=== PATIENT | female | born 1985 | race Caucasian/White ===

== ENCOUNTER → 2018-04-07 15:10 | Outpatient (CLI) | payer OTHER, SELFPAY ==
[2018-04-11 15:34] LABS: HPV APTIMA, High Risk Negative (Negative)
== END ==
PROVIDERS: Family Provider Family Medicine; PCP Family Medicine; Visit Provider Nurse Practitioner Women's Health
DX: Z12.4 Encounter for screening for malignant neoplasm of cervix (principal)
CPT/HCPCS: 88175; G0145

== ENCOUNTER → 2018-05-05 09:28 | Outpatient (CLI) | payer OTHER, SELFPAY | LOC: OPBI 09:28 | PROVIDERS: Family Provider Family Medicine; PCP Family Medicine; Visit Provider Nurse Practitioner Women's Health | DX: N60.02 Solitary cyst of left breast (principal) | CPT/HCPCS: 76641; 77062; 77063; 77066; G0279 ==

== ENCOUNTER → 2025-03-19 | Outpatient (CLI) | payer OTHER, SELFPAY ==
[2025-03-19 10:39] LABS: Hematocrit 40.9 % (37-47); Hemoglobin 13.4 g/dL (12.0-15.0); Immature Granulocytes Count 0.010 X10^3/uL (0.0-0.0); Mean Corp Hgb Conc 32.8 g/dL (32-36); Mean Corpuscular Volume 92.5 fL (81-99); Mean Platelet Vol. 11.3 fl (6.2-12.0); NRBC Flagged by Analyzer 0 % (0-5); Platelet Count 198 K/mm3 (150-450); RBC Distribution Width CV 12.6 % (11.6-14.6); RBC Distribution Width SD 43.0 fl (35.1-43.9); Red Blood Count 4.42 M/mm3 (4.2-5.4); White Blood Count 5.3 K/mm3 (4.4-11.0)
[2025-03-19 11:42] LABS: AST(SGOT) 20 U/L (<=31); Alanine Aminotransfer ALT/SGPT 14 U/L (<=34); Albumin, Serum 4.3 g/dL (3.5-5.0); Alkaline Phosphatase 65 U/L (35-104); Anion Gap 11 (5-15); BUN 11 mg/dL (4-19); BUN/Creat Ratio 13.1 RATIO (10-20); Calcium,Total 9.5 mg/dL (7.6-11.0); Carbon Dioxide 23.1 mmol/L (21.0-32.0); Chloride 105 mmol/L (98-108); Cholesterol 187 mg/dL (<=200); Ferritin 95 ng/mL (22-378); Globulin 2.7 g/dL (2.2-4.2); Glucose 86 mg/dL (70-99); Low Density Lipoprotein Calc. 123 mg/dL; Potassium 4.4 mmol/L (3.3-5.1); Triglycerides 70 mg/dL; Very Low Density Lipoprotein 14 mg/dL (5-40); cholesterol:hdl ratio screen 3.75
[2025-03-19 12:00] LABS: Iron 66 ug/dL (50-170)
[2025-03-19 12:37] LABS: CORTISOL AM 11.60 ug/dL (6.02-18.40)
== END | disposition home or self-care (01) ==
LOC: MTLAB 07:47
PROVIDERS: PCP Family Medicine; Referring Provider Family Medicine; Visit Provider Family Medicine
DX: Z00.00 Encounter for general adult medical examination without abnormal findings (principal); R63.8 Other symptoms and signs concerning food and fluid intake; R53.83 Other fatigue
CPT/HCPCS: 36415; 80053; 80061; 82533; 82728; 83540; 84443; 85025

== ENCOUNTER → 2025-06-14 | Outpatient (CLI) | payer OTHER, SELFPAY ==
--- NOTE | 2025-06-14 13:07 | BI_ITS ---
EXAM: DIAG MAMM W/CAD, BILAT 06/14/2025 CLINICAL HISTORY: F, Age 39 y/o , LUMP LEFT BREAST TECHNIQUE: Procedure Code: [id number] Modality: MG Procedure: DIAG MAMM W/CAD, BILAT. COMPARISON: Prior exam(s) dated 11/21/2023 and 05/05/2018. FINDINGS: TISSUE DENSITY: The breasts are extremely dense, which lowers the sensitivity of mammography. Bilateral Breast Mammographic Findings: There are no suspicious masses, suspicious cluster of microcalcifications, architectural distortion or secondary signs of malignancy identified in the right breast. Benign round microcalcifications are seen in the right breast. Several partially obscured isodense masses are seen in the left breast. There is a mass located in the superior medial far posterior aspect of the breast which has a lobulated configuration. This may represent 2 separate masses or 1 lobulated mass. This mass measures 3 cm. This mass does correlate to the palpable abnormality. Further workup with ultrasound will be performed for further evaluation. There is a 12 mm partially obscured isodense mass in the superior outer aspect of the left breast. Further workup with ultrasound will be performed. BI/DIAG MAMM W/CAD, BILAT IMPRESSION: Ultrasound of the left breast will be performed for further evaluation of the m asses seen and the palpable abnormality. OVERALL FINAL ASSESSMENT BI-RADS 0: INCOMPLETE - NEED ADDITIONAL IMAGING EVALUATION. RECOMMENDATION: Ultrasound Recommended Additional Recommendation none A letter with findings and recommendations will be mailed to the patient. Reading Location: [id number]
--- NOTE | 2025-06-14 13:07 | US_ITS ---
PROCEDURE: BREAST COMPLETE UNILATERAL 06/14/2025 REASON FOR EXAM: F, Age 39 y/o , LUMP Palpable abnormality left breast. Evaluate. Inconclusive mammogram shows 2 masses in the left breast. The breast tissue is also dense which could obscure smaller underlying masses. COMPARISON: Mammogram studies dated 06/14/2025, 11/21/2023, and 05/05/2018. A left breast ultrasound dated 05/05/2018 was also reviewed.. TECHNIQUE: Procedure Code: [id number] Modality: US Procedure: BREAST COMPLETE UNILATERAL. A complete left breast ultrasound was performed. All 4 quadrants were scanned as well as the retroareolar region and axillary region. FINDINGS: There is a solid, hypoechoic, lobulated, heterogeneous mass in the left breast at the 11 o'clock, 8 cm from nipple position measuring 2.9 by 2.3 x 2.5 cm. The mass does not produce any posterior shadowing. The mass is taller than it is wide. It does correlate to the palpable abnormality and mass seen on the mammogram. There is blood flow to the mass. The mass is highly worrisome for malignancy. Biopsy is warranted. There is a solid hypoechoic mass in the left breast at the 1 o'clock, 8 cm from nipple position measuring 1.2 x 1.1 x 0.9 cm. This mass appears to be within a duct. There is blood flow to the mass. The mass does not produce any posterior shadowing. The mass does correlate to a mass seen on the mammogram. The mass is worrisome for malignancy. Biopsy is warranted. No other additional masses are seen in the breast. There are 2 benign-appearing axillary lymph nodes. These have thin cortexes and fatty hilum. These lymph nodes are not worrisome for malignancy. US/Breast Limited Unilateral IMPRESSION: There are 2 malignant-appearing masses in the left breast at the 11 o'clock and 1 o'clock positions. Biopsy of both masses is warranted in order to completely exclude a malignancy. BI-RADS 5: HIGHLY SUGGESTIVE OF MALIGNANCY. RECOMMENDATION: Biopsy Recommended Reading Location: [id number]
--- OUTSIDE RECORDS SUMMARY | 2025-06-14 16:09 | XMS RPT_ITS | CCD ---
Author Organization [facility] Team Providers Care 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 Name Role Phone HarryChely arias Unavailable Unavailable Unavailable Ryan DO Chely Jada Unavailable [phone] Mesko DO, Victoria L Primary Care Provider Mesko DO, Victoria L Unavailable MESKO, VICTORIA L Referring Unavailable MESKO, VICTORIA L Primary Care Unavailable MESKO, VICTORIA L Primary Care Unavailable MESKO, VICTORIA L Primary Care Unavailable MESKO, VICTORIA L Referring Unavailable MESKO, VICTORIA L Primary Care Unavailable MESKO, VICTORIA L Referring Unavailable MESKO, VICTORIA L Primary Care Unavailable MESKO, VICTORIA L Referring Unavailable MESKO, VICTORIA L Primary Care Unavailable Mesko DO, Victoria L Unavailable [phone] MESKO, VICTORIA L Attending Unavailable MESKO, VICTORIA L Primary Care Unavailable MESKO, VICTORIA L Primary Care Unavailable MESKO, VICTORIA L Referring Unavailable MESKO, VICTORIA L Attending Unavailable MESKO, VICTORIA L Primary Care Unavailable MESKO, VICTORIA L Attending Unavailable MESKO, VICTORIA L Primary Care Unavailable MESKO, VICTORIA L Primary Care Unavailable KIMBERLEY VAZQUEZ Attending Unavailelana e MESKO, VICTORIA L Primary Care Unavailable Dr. Fortunato Berry DO Primary Care Provider [phone] Dr. Fortunato Berry DO Attending Provider [phone] Dr. Fortunato Berry DO Referring Provider Fortunato Berry Referring Unavailable Fortunato Berry Attending Unavailable Fortunato Berry Primary Care Unavailable Medications Current Medications Medication Drug Class(es) Dates Sig (Normalized) Sig (Original) amoxicillin 500 mg oral capsule (1 source) Penicillin-class Antibacterial Start: 09-17-2023 End: 09-22-2023 take 1 capsule by mouth every eight hours amoxicillin (Amoxil) 500 mg capsule Indications: Dental infection Take 1 capsule (500 mg) by mouth every 8 hours for 5 days. 15 capsule 0 09/17/2023 09/22/2023 Active Completed/Discontinued Medications Medication Drug Class(es) Dates Sig (Normalized) Sig (Original) amoxicillin 875 mg / clavulanate 125 mg oral tablet (1 source) Penicillin-class Antibacterial Start: 08-05-2018 End: 08-15-2018 Amoxicillin-Pot Clavulanate (Augmentin) 875-125 mg tablet Discontinued 1 {tbl} PO Q12H 20 10 0 August 05, 2018 1:00am August 14, 2018 1:00am August 15, 2018 1:09am Acute sinusitis, unspecified azithromycin 250 mg oral tablet (2 sources) Macrolide Antimicrobial Start: 07-26-2023 End: 08-07-2023 azithromycin (Zithromax) 250 mg tablet take 2 tablets by mouth on day 1 then 1 tablet by mouth every day after 6 tablet 0 07/26/2023 08/07/2023 Discontinued (Med List Cleanup) Start: 11-18-2019 take 2-5 tablets by mouth once daily Azithromycin (Zithromax Z-Harish) 250 mg tablet Active 0 PO .COMPLEX 6 0 November 18, 2019 12:00am take 500 mg today (day 1), then 250 mg for 4 days (days 2-5) PO metroNIDAZOLE 500 mg oral tablet (1 source) Nitroimidazole Antimicrobial Start: 03-28-2022 take 1 tablet by mouth twice daily metroNIDAZOLE 500 MG Oral Tablet TAKE 1 TABLET TWICE DAILY UNTIL FINISHED. Quantity: 14 Refills: 0 Ordered: 28-Mar-2022 Rachel Morse DO Start : 28-Mar-2022 Active No Reported Medications (2 sources) No Reported Medications Quantity: 0 Refills: 0 Ordered: 20-Mar-2022 DO Active sertraline 50 mg oral tablet (13 sources) Serotonin Reuptake Inhibitor Start: 05-26-2024 End: 09-05-2024 take 1 tablet by mouth once daily sertraline (Zoloft) 50 mg tablet Indications: Acute stress reaction Take 1 tablet (50 mg) by mouth once daily. 90 tablet 3 09/05/2024 09/05/2024 Discontinued (Reorder) Start: 10-30-2023 End: 04-27-2024 take 1 tablet by mouth once daily sertraline (Zoloft) 50 mg tablet Indications: Acute stress reaction Take 1 tablet (50 mg) by mouth once daily. 90 tablet 1 10/30/2023 04/27/2024 Active Start: 07-18-2023 End: 10-16-2023 take 1 tablet by mouth once daily sertraline (Zoloft) 50 mg tablet Indications: Acute stress reaction Take 1 tablet (50 mg) by mouth once daily. 90 tablet 0 07/18/2023 10/16/2023 Active Start: 05-16-2023 End: 07-15-2023 take 1 tablet by mouth once daily sertraline (Zoloft) 25 mg tablet Indications: Acute stress reaction Take 1 tablet (25 mg) by mouth once daily. 30 tablet 1 05/16/2023 07/15/2023 Active Problems Active Problems Problem Classification Problem Date Documented Date Episodic/Chronic Adjustment disorders (20 sources) Adjustment disorder with mixed anxiety and depressed mood; Translations: [Adjustment disorder with mixed anxiety and depressed mood] Onset: 12-07-2022 12-07-2022 Chronic Anxiety disorders (6 sources) Acute stress disorder; Translations: [Acute stress reaction] Onset: 09-05-2024 05-16-2023 Chronic Immunizations and screening for infectious disease (2 sources) Encounter for immunization; Translations: [Encounter for immunization] Onset: 07-10-2024 Episodic Menstrual disorders (16 sources) Menorrhagia; Translations: [Excessive or frequent menstruation] Onset: 12-07-2022 12-07-2022 Chronic Nonmalignant breast conditions (14 sources) Fibrocystic disease of breast; Translations: [Diffuse cystic mastopathy] Onset: 12-07-2022 12-07-2022 Chronic Other nutritional; endocrine; and metabolic disorders (2 sources) Overweight in adulthood with body mass index of 25 or more but less than 30; Translations: [Overweight] 05-16-2023 Episodic Other and delivery including normal (3 sources) Delivery normal; Translations: [Normal delivery] Episodic Comment on above: 08-04-2002-34 weeks- [id number]-7 lbs 7 oz; Other upper respiratory infections (1 source) Acute sinusitis; Translations: [Acute sinusitis, unspecified] 08-05-2018 Episodic Residual codes; unclassified (18 sources) BRCA1 gene mutation positive; Translations: [Genetic susceptibility to malignant neoplasm of breast] Onset: 12-07-2022 12-07-2022 Episodic Residual codes; unclassified (2 sources) Genetic susceptibility to malignant neoplasm of breast; Translations: [Genetic susceptibility to malignant neoplasm of breast] Onset: 12-07-2022 Episodic Residual codes; unclassified (2 sources) Genetic susceptibility to other malignant neoplasm; Translations: [Genetic susceptibility to other malignant neoplasm] Onset: 12-07-2022 Episodic Residual codes; unclassified (1 source) Family history of malignant neoplasm of breast in first degree relative; Translations: [Family history of malignant neoplasm of breast] 04-07-2018 Episodic Residual codes; unclassified (1 source) Breast cancer genetic marker of susceptibility positive; Translations: [Genetic susceptibility to malignant neoplasm of breast] 04-07-2018 Episodic Unclassified (1 source) ERRONEOUS ENCOUNTER--DISREGARD 08-12-2023 Unclassified (1 source) Patient encounter status 09-05-2024 Past or Other Problems Problem Classification Problem Date Documented Date Episodic/Chronic Disorders of teeth and jaw (3 sources) Infection of tooth; Translations: [Periapical abscess without sinus] Onset: 09-17-2023 09-17-2023 Episodic Inflammatory diseases of female pelvic organs (12 sources) Bacterial vaginosis; Translations: [Vaginitis and vulvovaginitis, unspecified] Onset: 12-07-2022 Resolved: 05-16-2023 05-16-2023 Episodic Mood disorders (11 sources) Mood disorders Onset: 05-16-2023 Resolved: 10-09-2023 05-16-2023 Nonspecific chest pain (4 sources) Other chest pain; Translations: [Other chest pain] Onset: 10-21-2023 Episodic Other circulatory disease (2 sources) Hemorrhage, not elsewhere classified; Translations: [Hemorrhage, not elsewhere classified] Onset: 10-21-2023 Episodic Other connective tissue disease (2 sources) Other muscle spasm; Translations: [Other muscle spasm] Onset: 10-21-2023 Episodic Other injuries and conditions due to external causes (4 sources) Unspecified injury of thorax, initial encounter; Translations: [Unspecified injury of thorax, initial encounter] Onset: 10-21-2023 Episodic Other lower respiratory disease (4 sources) Pleurodynia; Translations: [Pleurodynia] Onset: 10-21-2023 Episodic Other nutritional; endocrine; and metabolic disorders (2 sources) Overweight; Translations: [Overweight] Onset: 10-09-2023 Episodic Other nutritional; endocrine; and metabolic disorders (2 sources) Body mass index (BMI) 26.0-26.9, adult; Translations: [Body mass index (BMI) 26.0-26.9, adult] Onset: 10-09-2023 Episodic Other screening for suspected conditions (not mental disorders or infectious disease) (17 sources) Patient encounter status; Translations: [Screening for other and unspecified cardiovascular conditions] Onset: 10-09-2023 10-09-2023 Episodic Sprains and strains (2 sources) Strain of muscle, fascia and tendon at neck level, initial encounter; Translations: [Strain of muscle, fascia and tendon at neck level, initial encounter] Onset: 10-21-2023 Episodic Unclassified (3 sources) Finding of menstrual bleeding; Translations: [Menstruation] Comment on above: age 12; Unclassified (1 source) BRCA 1 positive 03-30-2022 Results Test Name Value Interpretation Reference Range Facility Absolute lymphocyte countOrd ered By: Fortunato Berry on 03-19-2025 Lymphocytes Auto (Unsp spec) [#/Vol] 1.62 10*3/uL 0.83-4.51 [facility] Absolute neutrophil countOrd ered By: Fortunato Berry on 03-19-2025 Neutrophils (Bld) [#/Vol] 3.2 10*3/uL 2.0-7.7 [facility] Anion gap in Serum or Plasma Ordered By: Fortunato Berry on 03-19-2025 Anion gap [Moles/Vol] 11 mmol/L 5-15 [facility] Automated lymphocyte count a s percentage of total leukocytesOrdered By: Fortunato Berry on 03-19-2025 Lymphocytes/100 WBC Auto (Unsp spec) 30.7 % 19-41 [facility] BUN/creatinine ratioOrdered By: Fortunato Berry on 03-19-2025 Urea nitrogen/Creatinine [Mass ratio] 13.1 mg/mg 10-20 [facility] Basophil percentageOrdered B y: Fortunato Berry on 03-19-2025 Basophils/100 WBC (Bld) 0.6 % 0-1 [facility] Bilirubin, totalOrdered By: Fortunato Berry on 03-19-2025 Bilirubin [Mass/Vol] 0.36 mg/dL 0.00-1.30 [facility] CBC W/Diff, Automatedon 03-09 Absolute Lymph 1.62 X10 3/uL Normal 0.83-4.51 [facility] Comment on above: Performed By: #### L 100.0100, L501.9520, L503.6550, L500.4100, L500.4050, L503.6150, L509.6001 #### [facility] [address] [place], [address] Absolute Neut 3.2 X10 3/uL Normal 2.0-7.7 [facility] Comment on above: Performed By: #### L 100.0100, L501.9520, L503.6550, L500.4100, L500.4050, L503.6150, L509.6001 #### [facility] [address] [place], [address] Basophils/100 WBC (Bld) 0.6 % Normal 0-1 [facility] Comment on above: Performed By: #### L 100.0100, L501.9520, L503.6550, L500.4100, L500.4050, L503.6150, L509.6001 #### [facility] [address] [place], [address] Eosinophils/100 WBC (Bld) 1.7 % Normal 0-5 [facility] Comment on above: Performed By: #### L 100.0100, L501.9520, L503.6550, L500.4100, L500.4050, L503.6150, L509.6001 #### [facility] [address] [place], [address] Erythrocyte distribution width (RBC) [Ratio] 12.6 % Normal 11.6-14.6 [facility] Comment on above: Performed By: #### L 100.0100, L501.9520, L503.6550, L500.4100, L500.4050, L503.6150, L509.6001 #### [facility] [address] [place], [address] Hematocrit (Bld) [Volume fraction] 40.9 % Normal 37-47 [facility] Comment on above: Performed By: #### L 100.0100, L501.9520, L503.6550, L500.4100, L500.4050, L503.6150, L509.6001 #### [facility] [address] [place], [address] Hemoglobin (Bld) [Mass/Vol] 13.4 g/dL Normal 12.0-15.0 [facility] Comment on above: Performed By: #### L 100.0100, L501.9520, L503.6550, L500.4100, L500.4050, L503.6150, L509.6001 #### [facility] [address] [place], [address] IG% 0.200 Normal 0.0-0.9 [facility] Comment on above: Result Comment: IG% - Immature Granulocytes (promyelocytes, myelocytes and metamyelocytes) > 1% indicates that a LEFT SHIFT is Present. Performed By: #### L 100.0100, L501.9520, L503.6550, L500.4100, L500.4050, L503.6150, L509.6001 #### [facility] [address] [place], [address] Lymphocytes/100 WBC (Bld) 30.7 % Normal 19-41 [facility] Comment on above: Performed By: #### L 100.0100, L501.9520, L503.6550, L500.4100, L500.4050, L503.6150, L509.6001 #### [facility] [address] [place], [address] MCH (RBC) [Entitic mass] 30.3 pg Normal 27.0-32.0 [facility] Comment on above: Performed By: #### L 100.0100, L501.9520, L503.6550, L500.4100, L500.4050, L503.6150, L509.6001 #### [facility] [address] [place], [address] MCHC (RBC) [Mass/Vol] 32.8 g/dL Normal 32-36 [facility] Comment on above: Performed By: #### L 100.0100, L501.9520, L503.6550, L500.4100, L500.4050, L503.6150, L509.6001 #### [facility] [address] [place], [address] MCV (RBC) [Entitic vol] 92.5 fL Normal 81-99 [facility] Comment on above: Performed By: #### L 100.0100, L501.9520, L503.6550, L500.4100, L500.4050, L503.6150, L509.6001 #### [facility] [address] [place], [address] Monocytes/100 WBC (Bld) 6.3 % Normal 0-10 [facility] Comment on above: Performed By: #### L 100.0100, L501.9520, L503.6550, L500.4100, L500.4050, L503.6150, L509.6001 #### [facility] [address] [place], [address] Neutrophils/100 WBC (Bld) 60.5 % Normal 47-70 [facility] Comment on above: Performed By: #### L 100.0100, L501.9520, L503.6550, L500.4100, L500.4050, L503.6150, L509.6001 #### [facility] [address] [place], [address] Nucleated RBC (Bld) [#/Vol] 0 10*3/uL Normal 0-5 [facility] Comment on above: Performed By: #### L 100.0100, L501.9520, L503.6550, L500.4100, L500.4050, L503.6150, L509.6001 #### [facility] [address] [place], [address] Platelet mean volume (Bld) [Entitic vol] 11.3 fL Normal 6.2-12.0 [facility] Comment on above: Performed By: #### L 100.0100, L501.9520, L503.6550, L500.4100, L500.4050, L503.6150, L509.6001 #### [facility] [address] [place], [address] Platelets (Bld) [#/Vol] 198 10*3/uL Normal 150-450 [facility] Comment on above: Performed By: #### L 100.0100, L501.9520, L503.6550, L500.4100, L500.4050, L503.6150, L509.6001 #### [facility] [address] [place], [address] RBC (Bld) [#/Vol] 4.42 10*6/uL Normal 4.2-5.4 [facility] Comment on above: Performed By: #### L 100.0100, L501.9520, L503.6550, L500.4100, L500.4050, L503.6150, L509.6001 #### [facility] [address] [place], [address] RDW SD 43.0 fl Normal 35.1-43.9 [facility] Comment on above: Performed By: #### L 100.0100, L501.9520, L503.6550, L500.4100, L500.4050, L503.6150, L509.6001 #### [facility] [address] [place], [address] WBC (Bld) [#/Vol] 5.3 10*3/uL Normal 4.4-11.0 [facility] Comment on above: Performed By: #### L 100.0100, L501.9520, L503.6550, L500.4100, L500.4050, L503.6150, L509.6001 #### [facility] [address] [facility] [place], [address] Calculated very low density lipoprotein (VLDL) cholesterol measurementOrdered By: Fortunato Berry on 03-19-2025 Calculated very low density lipoprotein (VLDL) cholesterol measurement 14 mg/dL 5-40 [facility] Carbon dioxide, total [Moles /volume] in Central venous bloodOrdered By: Fortunato Berry on 03-19-2025 CO2 [Moles/Vol] 23.1 mmol/L 21.0-32.0 [facility] Chloride assayOrdered By: Dylan Berry on 03-19-2025 Chloride [Moles/Vol] 105 mmol/L 98-108 [facility] Comprehensive Metabolic Prof ilon 03-19-2025 Albumin [Mass/Vol] 4.3 g/dL Normal 3.5-5.0 [facility] Comment on above: Performed By: #### L 100.0100, L501.9520, L503.6550, L500.4100, L500.4050, L503.6150, L509.6001 #### [facility] [address] [place], [address] Albumin/Globulin [Mass ratio] 1.6 {ratio} Normal 0.9-2.4 [facility] Comment on above: Performed By: #### L 100.0100, L501.9520, L503.6550, L500.4100, L500.4050, L503.6150, L509.6001 #### [facility] [address] [place], [address] ALK PHOS 65 U/L Normal 35-104 [facility] Comment on above: Performed By: #### L 100.0100, L501.9520, L503.6550, L500.4100, L500.4050, L503.6150, L509.6001 #### [facility] [address] [place], [address] ALT [Catalytic activity/Vol] 14 U/L Normal <=34 [facility] Comment on above: Performed By: #### L 100.0100, L501.9520, L503.6550, L500.4100, L500.4050, L503.6150, L509.6001 #### [facility] [address] [place], [address] AST [Catalytic activity/Vol] 20 U/L Normal <=31 [facility] Comment on above: Performed By: #### L 100.0100, L501.9520, L503.6550, L500.4100, L500.4050, L503.6150, L509.6001 #### [facility] [address] [place], [address] Bilirubin [Mass/Vol] 0.36 mg/dL Normal 0.00-1.30 [facility] Comment on above: Performed By: #### L 100.0100, L501.9520, L503.6550, L500.4100, L500.4050, L503.6150, L509.6001 #### [facility] [address] [place], [address] BUN/CRE 13.1 RATIO Normal 10-20 [facility] Comment on above: Performed By: #### L 100.0100, L501.9520, L503.6550, L500.4100, L500.4050, L503.6150, L509.6001 #### [facility] [address] [place], [address] Calcium [Mass/Vol] 9.5 mg/dL Normal 7.6-11.0 [facility] Comment on above: Performed By: #### L 100.0100, L501.9520, L503.6550, L500.4100, L500.4050, L503.6150, L509.6001 #### [facility] [address] [place], [address] Chloride [Moles/Vol] 105 mmol/L Normal 98-108 [facility] Comment on above: Performed By: #### L 100.0100, L501.9520, L503.6550, L500.4100, L500.4050, L503.6150, L509.6001 #### [facility] [address] [place], [address] CO2 [Moles/Vol] 23.1 mmol/L Normal 21.0-32.0 [facility] Comment on above: Performed By: #### L 100.0100, L501.9520, L503.6550, L500.4100, L500.4050, L503.6150, L509.6001 #### [facility] [address] [place], [address] Creatinine [Mass/Vol] 0.82 mg/dL Normal 0.70-1.20 [facility] Comment on above: Performed By: #### L 100.0100, L501.9520, L503.6550, L500.4100, L500.4050, L503.6150, L509.6001 #### [facility] [address] [place], [address] GAP 11 Normal 5-15 [facility] Comment on above: Performed By: #### L 100.0100, L501.9520, L503.6550, L500.4100, L500.4050, L503.6150, L509.6001 #### [facility] [address] [place], [address] GFR/1.73 sq M.predicted among non-blacks MDRD (S/P/Bld) [Vol rate/Area] 93 mL/min/{1.73_m2} Normal >60 [facility] Comment on above: Result Comment: mL/m in/1.73m2 CKD-EPI Creatinine Equation (2020) Performed By: #### L 100.0100, L501.9520, L503.6550, L500.4100, L500.4050, L503.6150, L509.6001 #### [facility] [address] [place], [address] Globulin (S) [Mass/Vol] 2.7 g/dL Normal 2.2-4.2 [facility] Comment on above: Performed By: #### L 100.0100, L501.9520, L503.6550, L500.4100, L500.4050, L503.6150, L509.6001 #### [facility] [address] [place], [address] Glucose [Mass/Vol] 86 mg/dL Normal 70-99 [facility] Comment on above: Performed By: #### L 100.0100, L501.9520, L503.6550, L500.4100, L500.4050, L503.6150, L509.6001 #### [facility] [address] [place], [address] Potassium [Moles/Vol] 4.4 mmol/L Normal 3.3-5.1 [facility] Comment on above: Performed By: #### L 100.0100, L501.9520, L503.6550, L500.4100, L500.4050, L503.6150, L509.6001 #### [facility] [address] [place], [address] Sodium [Moles/Vol] 140 mmol/L Normal 133-145 [facility] Comment on above: Performed By: #### L 100.0100, L501.9520, L503.6550, L500.4100, L500.4050, L503.6150, L509.6001 #### [facility] [address] [place], [address] T PROT 7.0 g/dL Normal 5.9-8.4 [facility] Comment on above: Performed By: #### L 100.0100, L501.9520, L503.6550, L500.4100, L500.4050, L503.6150, L509.6001 #### [facility] [address] [place], [address] Urea nitrogen [Mass/Vol] 11 mg/dL Normal 4-19 [facility] Comment on above: Performed By: #### L 100.0100, L501.9520, L503.6550, L500.4100, L500.4050, L503.6150, L509.6001 #### [facility] [address] [place], [address] Eosinophil percentageOrdered By: Fortunato Berry on 03-19-2025 Eosinophils/100 WBC (Bld) 1.7 % 0-5 [facility] Erythrocyte distribution wid th ratioOrdered By: Fortunato Berry on 03-19-2025 Erythrocyte distribution width (RBC) [Ratio] 12.6 % 11.6-14.6 [facility] Erythrocyte distribution wid th standard deviationOrdered By: Fortunato Berry on 03-19-2025 Erythrocyte distribution width (RBC) [Ratio] 43.0 fl 35.1-43.9 [facility] Ferritinon 03-19-2025 Ferritin [Mass/Vol] 95 ng/mL Normal 22-378 [facility] Comment on above: Performed By: #### L 100.0100, L501.9520, L503.6550, L500.4100, L500.4050, L503.6150, L509.6001 #### [facility] [address] [place], [address] Glomerular filtration rate ( GFR) estimation/1.73 sq m using serum, plasma, or whole bOrdered By: Fortunato Berry on 03-19-2025 GFR/1.73 sq M.predicted among non-blacks MDRD (S/P/Bld) [Vol rate/Area] 93 mL/min/{1.73_m2} >60 [facility] Comment on above: mL/min/1.73m2 CKD-EP I Creatinine Equation (2020) Hematocrit Auto (Bld) [Volum e fraction]Ordered By: Fortunato Berry on 03-19-2025 Hematocrit (Bld) [Volume fraction] 40.9 % 37-47 [facility] Hemoglobin measurementOrdere d By: Fortunato Berry on 03-19-2025 Hemoglobin (Bld) [Mass/Vol] 13.4 g/dL 12.0-15.0 [facility] Immature granulocytes/100 WB C Auto (Bld)Ordered By: Fortunato Berry on 03-19-2025 Immature granulocytes/100 WBC (Bld) 0.200 % 0.0-0.9 [facility] Comment on above: IG% - Immature Granu locytes (promyelocytes, myelocytes and metamyelocytes) > 1% indicates that a LEFT SHIFT is Present. Ironon 03-19-2025 Iron [Mass/Vol] 66 ug/dL Normal 50-170 [facility] Comment on above: Performed By: #### L 100.0100, L501.9520, L503.6550, L500.4100, L500.4050, L503.6150, L509.6001 #### [facility] [address] [place], [address] Iron measurement (mass/mass) Ordered By: Fortunato Berry on 03-19-2025 Iron (Unsp spec) [Mass/Mass] 66 ug/dL 50-170 [facility] L509.6001on 03-19-2025 CORTISOL 11.60 ug/dL Normal 6.02-18.40 [facility] Comment on above: Performed By: #### L 100.0100, L501.9520, L503.6550, L500.4100, L500.4050, L503.6150, L509.6001 #### [facility] [address] [place], [address] LDL calc ser/plasOrdered By: Fortunato Berry on 03-19-2025 Cholesterol in LDL [Mass/Vol] 123 mg/dL [facility] Comment on above: Nwkhgonjkt=629-712 m g/dL & Higher Vhuu=527 mg/dL or greater Laboratory - Chemistry and C hemistry - challengeOrdered By: Fortunato Berry on 03-19-2025 AST [Catalytic activity/Vol] 20 U/L <32 [facility] Lipid Profileon 03-19-2025 CHOL:HDL 3.75 Normal [facility] Comment on above: Performed By: #### L 100.0100, L501.9520, L503.6550, L500.4100, L500.4050, L503.6150, L509.6001 #### [facility] [address] [place], [place], [id number] [phone] Cholesterol [Mass/Vol] 187 mg/dL Normal <=200 [facility] Comment on above: Result Comment: Chol esterol level, Desirable <200 mg/dL Borderline high cholesterol 200-239 mg/dL High cholesterol >=240 mg/dL Recommendations of the NCEP Adult Treatment Panel for the following risk-cutoff thresholds for the [place] population. Performed By: #### L 100.0100, L501.9520, L503.6550, L500.4100, L500.4050, L503.6150, L509.6001 #### [facility] [address] [place], [address] Cholesterol in HDL [Mass/Vol] 50 mg/dL Normal [facility] Comment on above: Result Comment: Shilpa onal Cholesterol Education Program (NCEP) guidelines: <40 mg/dL: Low HDL-cholesterol (major risk factor for CHD) >= 60 mg/dL: High HDL-cholesterol (negative risk factor for CHD) HDL-cholesterol is affected by a number of factors, e.g. smoking, exercise, hormones, sex and age. Performed By: #### L 100.0100, L501.9520, L503.6550, L500.4100, L500.4050, L503.6150, L509.6001 #### [facility] [address] [place], [address] Cholesterol in LDL [Mass/Vol] 123 mg/dL Normal [facility] Comment on above: Result Comment: Bord fjopjr=854-235 mg/dL Higher Tqnv=417 mg/dL or greater Performed By: #### L 100.0100, L501.9520, L503.6550, L500.4100, L500.4050, L503.6150, L509.6001 #### [facility] [address] [place], [address] Cholesterol in VLDL [Mass/Vol] 14 mg/dL Normal 5-40 [facility] Comment on above: Performed By: #### L 100.0100, L501.9520, L503.6550, L500.4100, L500.4050, L503.6150, L509.6001 #### [facility] [address] [place], [address] Triglyceride [Mass/Vol] 70 mg/dL Normal [facility] Comment on above: Result Comment: The drugs N-Acetylcysteine and Metamizole may falsely depress this assay. Normal range: <150 mg/dL Borderline High: 150-199 mg/dL High: 200-499 mg/dL Very High: >500 mg/dL Performed By: #### L 100.0100, L501.9520, L503.6550, L500.4100, L500.4050, L503.6150, L509.6001 #### [facility] [address] [place], [address] MCV (mean corpuscular volume ) determinationOrdered By: Fortunato Berry on 03-19-2025 MCV (RBC) [Entitic vol] 92.5 fL 81-99 [facility] Mean corpuscular hemoglobin (MCH) determinationOrdered By: Fortunato Berry on 03-19-2025 MCH (RBC) [Entitic mass] 30.3 pg 27.0-32.0 [facility] Mean corpuscular hemoglobin concentration (MCHC) determinationOrdered By: Fortunato Berry on 03-19-2025 MCHC (RBC) [Mass/Vol] 32.8 g/dL 32-36 [facility] Mean platelet volume determi nationOrdered By: Fortunato Berry on 03-19-2025 Platelet mean volume (Bld) [Entitic vol] 11.3 fL 6.2-12.0 [facility] Monocyte percentageOrdered B y: Fortunato Berry on 03-19-2025 Monocytes/100 WBC (Bld) 6.3 % 0-10 [facility] Neutrophil percentageOrdered By: Fortunato Berry on 03-19-2025 Neutrophils/100 WBC (Bld) 60.5 % 47-70 [facility] Nucleated red blood cell per centageOrdered By: Fortunato Berry on 03-19-2025 Nucleated RBC/100 WBC (Bld) [Ratio] 0 % 0-5 [facility] Platelet countOrdered By: Dylan Berry on 03-19-2025 Platelets (Bld) [#/Vol] 198 10*3/uL 150-450 [facility] Potassium measurement (mass/ volume)Ordered By: Fortunato Berry on 03-19-2025 Potassium (Unsp spec) [Mass/Vol] 4.4 mmol/L 3.3-5.1 [facility] RBC Auto (Bld) [#/Vol]Ordere d By: Fortunato Berry on 03-19-2025 RBC (Bld) [#/Vol] 4.42 10*6/uL 4.2-5.4 [facility] Screening total cholesterol/ high density lipoprotein (HDL) cholesterol ratioOrdered By: Fortunato Berry on 03-19-2025 Cholesterol.total/Choles terol in HDL [Mass ratio] 3.75 {ratio} [facility] Serum creatinine measurement (mass/volume)Ordered By: Fortunato Berry on 03-19-2025 Creatinine [Mass/Vol] 0.82 mg/dL 0.70-1.20 [facility] Serum globulin measurementOr dered By: Fortunato Berry on 03-19-2025 Globulin (S) [Mass/Vol] 2.7 g/dL 2.2-4.2 [facility] Serum glucose measurement (m ass/volume)Ordered By: Fortunato Berry on 03-19-2025 Glucose [Mass/Vol] 86 mg/dL 70-99 [facility] Serum or plasma alanine dickson otransferase (ALT) measurementOrdered By: Fortunato Berry on 03-19-2025 ALT [Catalytic activity/Vol] 14 U/L <35 [facility] Serum or plasma albumin eyal urement (mass/volume)Ordered By: Fortunato Berry on 03-19-2025 Albumin [Mass/Vol] 4.3 g/dL 3.5-5.0 [facility] Serum or plasma albumin/glob ulin mass ratioOrdered By: Fortunato Berry on 03-19-2025 Albumin/Globulin [Mass ratio] 1.6 {ratio} 0.9-2.4 [facility] Serum or plasma alkaline zaid sphatase measurementOrdered By: Fortunato Berry on 03-19-2025 ALP [Catalytic activity/Vol] 65 U/L 35-104 [facility] Serum or plasma calcium eyal urement (mass/volume)Ordered By: Fortunato Berry on 03-19-2025 Calcium [Mass/Vol] 9.5 mg/dL 7.6-11.0 [facility] Serum or plasma cholesterol in HDL measurement (mass/volume)Ordered By: Fortunato Berry on 03-19-2025 Cholesterol in HDL [Mass/Vol] 50 mg/dL >40 [facility] Comment on above: National Cholesterol Education Program (NCEP) guidelines:<40 mg/dL: Low HDL-cholesterol (major risk factor for CHD)>= 60 mg/dL: High HDL-cholesterol (negative risk factor for CHD)HDL-cholesterol is affected by a number of factors, e.g. smoking, exercise, hormones, sex and age. Serum or plasma cholesterol measurement (mass/volume)Ordered By: Fortunato Berry on 03-19-2025 Cholesterol [Mass/Vol] 187 mg/dL <201 [facility] Comment on above: Cholesterol level, D esirable <200 mg/dLBorderline high cholesterol 200-239 mg/dLHigh cholesterol >=240 mg/dLRecommendations of the NCEP Adult Treatment Panel for the following risk-cutoff thresholds for the [place] population. Serum or plasma cortisol sada surement (mass/volume)Ordered By: Fortunato Berry on 03-19-2025 Cortisol [Mass/Vol] 11.60 ug/dL 6.02-18.40 [facility] Serum or plasma ferritin sada surement (mass/volume)Ordered By: Fortunato Berry on 03-19-2025 Ferritin [Mass/Vol] 95 ng/mL 22-378 [facility] Serum or plasma urea nitroge n measurement (mass/volume)Ordered By: Fortunato Berry on 03-19-2025 Urea nitrogen [Mass/Vol] 11 mg/dL 4-19 [facility] Sodium levelOrdered By: Fortunato Berry on 03-19-2025 Sodium [Moles/Vol] 140 mmol/L 133-145 [facility] TSH DL <= 0.005 mIU/L QnOrde red By: Fortunato Berry on 03-19-2025 TSH Qn 1.290 uIU/mL 0.300-4.200 [facility] Thyroid Stim Hormone (TSH)on 03-19-2025 TSH 1.290 uIU/mL Normal 0.300-4.200 [facility] Comment on above: Performed By: #### L 100.0100, L501.9520, L503.6550, L500.4100, L500.4050, L503.6150, L509.6001 #### [facility] [address] [place], [address] Total proteinOrdered By: Rosa Berry on 03-19-2025 Protein [Mass/Vol] 7.0 g/dL 5.9-8.4 [facility] Triglycerides measurementOrd ered By: Fortunato Berry on 03-19-2025 Triglyceride [Mass/Vol] 70 mg/dL <199 [facility] Comment on above: The drugs N-Acetylcy steine and Metamizole may falsely depress this assay. Normal range: <150 mg/dLBorderline High: 150-199 mg/dLHigh: 200-499 mg/dLVery High: >500 mg/dL White blood cell (WBC) count Ordered By: Fortunato Berry on 03-19-2025 WBC (Bld) [#/Vol] 5.3 10*3/uL 4.4-11.0 [facility] BI TRANSFER OF OUTSIDE FILMS on 11-22-2023 BI TRANSFER OF OUTSIDE FILMS Outside images for comparison or treatment purposes, not interpreted by Radiologists. [facility] BI TRANSFER OF OUTSIDE FILMS Outside images for comparison or treatment purposes, not interpreted by Radiologists. [facility] Study Interpretation of outs jason studyon 11-22-2023 Outside images for comparison or treatment purposes, not interpreted by Radiologists. IMAGING Outside images for comparison or treatment purposes, not interpreted by Radiologists. [facility]AG[facility] BI MAMMO BILATERAL SCREENING TOMOSYNTHESISon 11-21-2023 BI MAMMO BILATERAL SCREENING TOMOSYNTHESIS Interpreted By: Suleman Moody, STUDY: BI MAMMO BILATERAL SCREENING TOMOSYNTHESIS; 11/21/2023 9:52 am ACCESSION NUMBER(S): [id number] ORDERING CLINICIAN: VICTORIA FARMER INDICATION: Screening. COMPARISON: Digital mammograms dated 05/05/2018 FINDINGS: CC and MLO 2D digital mammograms and digital breast tomosynthesis images were obtained of the bilateral breasts. 3-D volume images were reconstructed in 4 views at an independent workstation as 1 mm slices through the breasts in both the CC and MLO projections. Density: The breast tissue is heterogeneously dense, which may obscure small masses. No discrete mass or focal asymmetry is identified. No suspicious microcalcifications or foci of architectural distortion are seen. There has been no significant change. This study was interpreted with CAD. IMPRESSION: No mammographic evidence of malignancy. BI-RADS CATEGORY: BI-RADS Category: 1 Negative. Recommendation: Routine Screening Mammogram in 1 Year. Recommended Date: 1 Year. Laterality: Bilateral. MACRO: None Signed by: Suleman Moody 11/27/2023 9:15 AM Dictation workstation: [id number] Normal [facility] CBC panel Auto (Bld)on 11-06 Erythrocyte distribution width (RBC) [Ratio] 12.9 % Normal 11.5-14.5 [facility] Comment on above: Performed By: #### 5 8410-2 #### KAREY Aquino ([id number]) [facility] ([facility]) [address] [place] [address] Hematocrit (Bld) [Volume fraction] 41.4 % Normal 36.0-46.0 [facility] Comment on above: Performed By: #### 5 8410-2 #### KAREY Aquino ([id number]) [facility] ([facility]) [address] [place] [address] 35731 Hemoglobin (Bld) [Mass/Vol] 13.6 g/dL Normal 12.0-16.0 [facility] Comment on above: Performed By: #### 5 8410-2 #### KAREY KIMTZLÓPEZ L ([id number]) [facility] ([facility]) [id number] [place] [address] 29284 MCH (RBC) [Entitic mass] 30.6 pg Normal 26.0-34.0 [facility] Comment on above: Performed By: #### 5 8410-2 #### KAREY BUCIO L ([id number]) [facility] ([facility]) [id number] [place] [address] 29540 MCHC (RBC) [Mass/Vol] 32.9 g/dL Normal 32.0-36.0 [facility] Comment on above: Performed By: #### 5 8410-2 #### KAREY Aquino ([id number]) [facility] ([facility]) [id number] [place] [address] 97233 MCV (RBC) [Entitic vol] 93 fL Normal 80-100 [facility] Comment on above: Performed By: #### 5 8410-2 #### KAREY Aquino ([id number]) [facility] ([facility]) [address] [place] [address] 76930 Nucleated RBC/100 WBC (Bld) [Ratio] 0.0 /100 WBCs Normal 0.0-0.0 [facility] Comment on above: Performed By: #### 5 8410-2 #### KAREY Aquino ([id number]) [facility] ([facility]) [address] [place] [address]502 Platelets (Bld) [#/Vol] 208 x10*3/uL Normal 150-450 [facility] Comment on above: Performed By: #### 5 8410-2 #### KAREY Aquino ([id number]) [facility] ([facility]) [address] [place] [address] 64082 RBC (Bld) [#/Vol] 4.45 x10*6/uL Normal 4.00-5.20 [facility] Comment on above: Performed By: #### 5 8410-2 #### KAREY Aquino ([id number]) [facility] ([facility]) [address] [place] [address] 98786 WBC (Bld) [#/Vol] 5.5 x10*3/uL Normal 4.4-11.3 [facility] Comment on above: Performed By: #### 5 8410-2 #### KAREY Aquino ([id number]) [facility] ([facility]) [address] [place] [address] 19271 Comprehensive metabolic 2000 panelon 11-06-2023 Albumin BCP dye [Mass/Vol] 4.2 g/dL Normal 3.4-5.0 [facility] Comment on above: Performed By: #### 2 4323-8 #### KAREY Aquino ([id number]) [facility] ([facility]) [id number] [place] [address] 09057 ALP [Catalytic activity/Vol] 66 U/L Normal 33-110 [facility] Comment on above: Performed By: #### 2 4323-8 #### KAREY Aquino ([id number]) [facility] ([facility]) [id number] [place] [address] 71602 ALT With P-5'-P [Catalytic activity/Vol] 9 U/L Normal 7-45 [facility] Comment on above: Result Comment: Giana ents treated with Sulfasalazine may generate falsely decreased results for ALT. Performed By: #### 2 4323-8 #### KAREY Aquino ([id number]) [facility] ([facility]) [address] [place] [address] 97449 Anion gap [Moles/Vol] 14 mmol/L Normal 10-20 [facility] Comment on above: Performed By: #### 2 4323-8 #### KAREY Aquino ([id number]) [facility] ([facility]) [id number] [place] [address] 57508 AST With P-5'-P [Catalytic activity/Vol] 14 U/L Normal 9-39 [facility] Comment on above: Performed By: #### 2 4323-8 #### KAREY Aquino ([id number]) [facility] ([facility]) [id number] [place] [address] 79828 Bilirubin [Mass/Vol] 0.5 mg/dL Normal 0.0-1.2 [facility] Comment on above: Performed By: #### 2 4323-8 #### KAREY Aquino ([id number]) [facility] ([facility]) [id number] [place] [address] 54915 Calcium [Mass/Vol] 9.3 mg/dL Normal 8.6-10.6 [facility] Comment on above: Performed By: #### 2 4323-8 #### KAREY Aquino ([id number]) [facility] ([facility]) [address] [place] [address] Chloride [Moles/Vol] 103 mmol/L Normal 98-107 [facility] Comment on above: Performed By: #### 2 4323-8 #### KAREY BUCIO L ([id number]) [facility] ([facility]) [address] [place] [address] CO2 [Moles/Vol] 27 mmol/L Normal 21-32 [facility] Comment on above: Performed By: #### 2 4323-8 #### KAREY Aquino ([id number]) [facility] ([facility]) [address] [place] [address] Creatinine [Mass/Vol] 0.68 mg/dL Normal 0.50-1.05 [facility] Comment on above: Performed By: #### 2 4323-8 #### KAREY Aquino ([id number]) [facility] ([facility]) [address] [place] [address] GFR/1.73 sq M.predicted MDRD (S/P/Bld) [Vol rate/Area] mL/min/{1.73_m2} Normal >60 [facility] Comment on above: Result Comment: Calc ulations of estimated GFR are performed using the 2020 CKD-EPI Study Refit equation without the race variable for the IDMS-Traceable creatinine methods. https://jasn.asnjournals.org/content/early//ASN.217 8365531 Performed By: #### 2 4323-8 #### KAREY Aquino ([id number]) [facility] ([facility]) [address] [place] [address] Glucose [Mass/Vol] 79 mg/dL Normal 74-99 [facility] Comment on above: Performed By: #### 2 4323-8 #### KAREY Aquino ([id number]) [facility] ([facility]) [address] [place] [address] Potassium [Moles/Vol] 4.3 mmol/L Normal 3.5-5.3 [facility] Comment on above: Performed By: #### 2 4323-8 #### KAREY CRUZER L ([id number]) [facility] ([facility]) [address] [place] [address] Protein [Mass/Vol] 6.5 g/dL Normal 6.4-8.2 [facility] Comment on above: Performed By: #### 2 4323-8 #### KAREY SCHMOTZER L ([id number]) [facility] ([facility]) [id number] [place] [address] 83007 Sodium [Moles/Vol] 140 mmol/L Normal 136-145 [facility] Comment on above: Performed By: #### 2 4323-8 #### KAREY SCHMOTZER L ([id number]) [facility] ([facility]) [address] [place] [address] 94677 Urea nitrogen [Mass/Vol] 10 mg/dL Normal 6-23 [facility] Comment on above: Performed By: #### 2 4323-8 #### KAREY RIVERAMOTZER L ([id number]) [facility] ([facility]) [id number] [place] [address] 82266 Lipid 1996 panelon 4 Cholesterol [Mass/Vol] 188 mg/dL Normal 0-199 [facility] Comment on above: Result Comment: Age Desirable Borderline High High 0-19 Y 0 - 169 170 - 199 >/= 200 20-24 Y 0 - 189 190 - 224 >/= 225 >24 Y 0 - 199 200 - 239 >/= 240 All ranges are based on fasting samples. Specific therapeutic targets will vary based on patient-specific cardiac risk. Pediatric guidelines reference:Pediatrics 2011, 128(S5).Adult guidelines reference: NCEP ATPIII Guidelines,TALITA 2001, 258:2486-97 Venipuncture immediately after or during the administration of Metamizole may lead to falsely low results. Testing should be performed immediately prior to Metamizole dosing. Performed By: #### 2 4331-1 #### KAREY Aquino ([id number]) [facility] ([facility]) [address] [place] [address] Cholesterol in HDL [Mass/Vol] 62.4 mg/dL Normal [facility] Comment on above: Result Comment: Age Very Low Low Normal High 0-19 Y < 35 < 40 40-45 ---- 20-24 Y ---- < 40 >45 ---- >24 Y ---- < 40 40-60 >60 Performed By: #### 2 4331-1 #### KAREY Aquino ([id number]) [facility] ([facility]) [id number] [place] [address] 47621 Cholesterol in LDL [Mass/Vol] 114 mg/dL High <=99 [facility] Comment on above: Result Comment: Near Borderline AGE Desirable Optimal High High Very High 0-19 Y 0 - 109 --- 110-129 >/= 130 ---- 20-24 Y 0 - 119 --- 120-159 >/= 160 ---- >24 Y 0 - 99 100-129 130-159 160-189 >/=190 Performed By: #### 2 4331-1 #### KAREY Aquino ([id number]) [facility] ([facility]) [id number] [place] [address] 23961 Cholesterol in VLDL [Mass/Vol] 12 mg/dL Normal 0-40 [facility] Comment on above: Performed By: #### 2 4331-1 #### KAREY Aquino ([id number]) [facility] ([facility]) [address] [place] [address] CHOLESTEROL/HDL RATIO 3.0 Normal [facility] Comment on above: Result Comment: Ref Values Desirable < 3.4 High Risk > 5.0 Performed By: #### 2 4331-1 #### KAREY Aquino ([id number]) [facility] ([facility]) [id number] [place] [address] 40202 NON HDL CHOLESTEROL 126 mg/dL Normal 0-149 [facility] Comment on above: Result Comment: Age Desirable Borderline High High Very High 0-19 Y 0 - 119 120 - 144 >/= 145 >/= 160 20-24 Y 0 - 149 150 - 189 >/= 190 ---- >24 Y 30 mg/dL above LDL Cholesterol goal Performed By: #### 2 4331-1 #### KAREY Aquino ([id number]) [facility] ([facility]) [address] [place], [place] [id number] Triglyceride [Mass/Vol] 60 mg/dL Normal 0-149 [facility] Comment on above: Result Comment: Age Desirable Borderline High High Very High 0 D-90 D 19 - 174 ---- ---- ---- 91 D- 9 Y 0 - 74 75 - 99 >/= 100 ---- 10-19 Y 0 - 89 90 - 129 >/= 130 ---- 20-24 Y 0 - 114 115 - 149 >/= 150 ---- >24 Y 0 - 149 150 - 199 200- 499 >/= 500 Venipuncture immediately after or during the administration of Metamizole may lead to falsely low results. Testing should be performed immediately prior to Metamizole dosing. Performed By: #### 2 4331-1 #### KAREY Aquino ([id number]) [facility] ([facility]) [address] [place], [place] [id number] TSH WITH REFLEX TO FREE T4 I F ABNORMALon 11-06-2023 TSH Qn 1.68 m[IU]/L Normal 0.44-3.98 [facility] Comment on above: Order Comment: TSH t esting is performed using different testing methodology at [facility] than at other [facility]. Direct result comparisons should only be made within the same method. Performed By: #### T HYDS #### KAREY Aquino ([id number]) [facility] ([facility]) [address] [place] [address] 78853 XR RIBS 3 VIEWS BILATERAL WI TH CHEST PA OR APon 10-21-2023 XR RIBS 3 VIEWS BILATERAL WITH CHEST PA OR AP STUDY: Bilateral Rib and Chest Radiographs; 10/21/2023 12:41 PM INDICATION: Chest pain and trauma. COMPARISON: None available. ACCESSION NUMBER(S): [id number] ORDERING CLINICIAN: VICTORIA FARMER TECHNIQUE: Frontal chest and three view(s) of the right ribs and three view(s) of the left ribs. FINDINGS: CARDIOMEDIASTINAL SILHOUETTE: Cardiomediastinal silhouette is normal in size and configuration. LUNGS: Lungs are clear. ABDOMEN: No remarkable upper abdominal findings. RIGHT RIBS: There is no acute rib fracture. LEFT RIBS: There is no acute rib fracture. OTHER VISUALIZED BONES: No acute osseous changes. IMPRESSION: No acute osseous findings. Signed by Francisco See II, MD Normal [facility] TOBACCO SCREEN MEDICAL PL AN ONLYon 05-31-2023 TOBACCO SCREEN, URINE Negative Normal [facility] Comment on above: Result Comment: Coti nine, a metabolite of nicotine, is measured to screen for nicotine exposure. The cut-off is set at 300ng/mL to detect active exposure (smoking). This test was developed and its performance characteristics were determined by the [facility]. Performed By: #### T OBSC #### [facility] [address] [place] [address] AN ONLYon 05-30-2023 Lab Specimen Source Urine Normal [facility] Comment on above: Performed By: #### T OBSC #### [facility] [address] [place] [address] Cancer Antigen, 125on 2021 Cancer Ag 125 Qn 8.9 [arb'U]/mL 0.0 - 30.2 [employer] Work Phone: Comment on above: CA 125 testing is pe rformed by chemiluminescent immunoassay using the [employer]. Values obtained with different analytic methods cannot be used interchangeably.. Serum CA 125 measurement is intended for use as an aid in monitoring patients previously treated for ovarian cancer. This assay is not intended for screening or diagnosis of cancer in the general population. The results must not be used as the sole means for clinical diagnosis or patient management decisions. Cancer Antigen, GI Ca 19-9on 03-20-2022 Cancer Ag 19-9 Qn 9.81 [arb'U]/mL <35.[address] [facility] [employer] Work Phone: Comment on above: CA 19-9 testing is p erformed by chemiluminescent immunoassay using the [employer]. Values obtained with different analytic methods cannot be used interchangeably.. Serum CA 19-9 measurement is indicated for the serial measurement of CA 19-9 to aid in the management of patients diagnosed with cancers of the exocrine pancreas. This assay is not intended for screening or diagnosis of cancer in the general population. The results must not be used as the sole means for clinical diagnosis or patient management decisions.. Patients known to be genotypically negative for the Dieter blood group antigens will be unable to produce CA 19-9 antigen, even in malignant tissue. Phenotyping for the presence of the Dieter antigen may be insufficient to detect true Dieter antigen negative individuals.. The results must not be used as the sole means for clinical diagnosis or patient management decisions. [facility] Last menstrual period start date 07Mar2022 April [place] [address] [employer] Work Phone: Laboratory - Chemistry and C hemistry - challengeon 03-20-2022 Albumin BCP dye [Mass/Vol] 4.4 g/dL 3.4 - 5.0 [place] [address] [employer] Work Phone: ALP [Catalytic activity/Vol] 67 U/L 33 - 110 [place] [address] [employer] Work Phone: ALT With P-5'-P [Catalytic activity/Vol] 19 U/L 7 - 45 [place] [address] [employer] Work Phone: Comment on above: Patients treated wit h Sulfasalazine may generate falsely decreased results for ALT. Anion gap [Moles/Vol] 10 mmol/L 10 - 20 [facility] [employer] Work Phone: AST With P-5'-P [Catalytic activity/Vol] 22 U/L 9 - 39 [place] [address] [employer] Work Phone: Bilirubin [Mass/Vol] 0.4 mg/dL 0.0 - 1.2 [facility] [employer] Work Phone: Calcium [Mass/Vol] 9.3 mg/dL 8.6 - 10.3 [facility] Work Phone: Chloride [Moles/Vol] 104 mmol/L 98 - 107 [facility] Work Phone: [phone] CO2 [Moles/Vol] 30 mmol/L 21 - 32 [facility] Work Phone: Creatinine [Mass/Vol] 0.80 mg/dL See Below [facility] Work Phone: Comment on above: Reference Range: 0.5 0 - 1.05 Glucose [Mass/Vol] 93 mg/dL 74 - 99 [facility] Work Phone: Potassium [Moles/Vol] 4.1 mmol/L 3.5 - 5.3 [facility] Work Phone: Protein [Mass/Vol] 6.9 g/dL 6.4 - 8.2 [facility] Work Phone: Sodium [Moles/Vol] 140 mmol/L 136 - 145 [facility] Phone: Urea nitrogen [Mass/Vol] 8 mg/dL 6 - 23 [facility] Work Phone: Laboratory - Cytologyon 03-09 Cytology report Cyto stain.thin prep Doc (Cvx/Vag) [facility] Work Phone: Lipid Panelon 03-20-2022 Cholesterol [Mass/Vol] 174 mg/dL 0 - [address] [facility] Work Phone: Comment on above: . AGE DESIRABLE BORD CAROL HIGH HIGH 0-19 Y 0 - 169 170 - 199 >/= 200 20-24 Y 0 - 189 190 - 224 >/= 225 >24 Y 0 - 199 200 - 239 >/= 240 All ranges are based on fasting samples. Specific therapeutic targets will vary based on patient-specific cardiac risk.. Pediatric guidelines reference:Pediatrics 2011, 128(S5). Adult guidelines reference: NCEP ATPIII Guidelines, TALITA 2001, 258:2486-97. Venipuncture immediately after or during the administration of Metamizole may lead to falsely low results. Testing should be performed immediately prior to Metamizole dosing. Cholesterol in HDL [Mass/Vol] 68.0 mg/dL [employer] Work Phone: Comment on above: . AGE VERY LOW LOW N ORMAL HIGH 0-19 Y < 35 < 40 40-45 ---- 20-24 Y ---- < 40 >45 ---- >24 Y ---- < 40 40-60 >60. Cholesterol in LDL [Mass/Vol] 94 mg/dL 0 - 99 [employer] Work Phone: Comment on above: . NEAR BORD AGE CAT RABLE OPTIMAL HIGH HIGH VERY HIGH 0-19 Y 0 - 109 --- 110-129 >/= 130 ---- 20-24 Y 0 - 119 --- 120-159 >/= 160 ---- >24 Y 0 - 99 100-129 130-159 160-189 >/=190. Cholesterol.total/Choles terol in HDL [Mass ratio] 2.6 {ratio} [employer] Work Phone: Comment on above: REF VALUESDESIRABLE < 3.4HIGH RISK > 5.0 Triglyceride [Mass/Vol] 60 mg/dL 0 - 149 [facility] [employer] Work Phone: Comment on above: . AGE DESIRABLE BORD CAROL HIGH HIGH VERY HIGH 0 D-90 D 19 - 174 ---- ---- ----91 D- 9 Y 0 - 74 75 - 99 >/= 100 ---- 10-19 Y 0 - 89 90 - 129 >/= 130 ---- 20-24 Y 0 - 114 115 - 149 >/= 150 ---- >24 Y 0 - 149 150 - 199 200- 499 >/= 500. Venipuncture immediately after or during the administration of Metamizole may lead to falsely low results. Testing should be performed immediately prior to Metamizole dosing. Lipid Panel 12 mg/dL 0 - 40 [employer] Work Phone: No Panel Informationon 03-20 >90 >90 [employer] Work Phone: Comment on above: CALCULATIONS OF LYLA MATED GFR ARE PERFORMED USING THE 2020 CKD-EPI STUDY REFIT EQUATION WITHOUT THE RACE VARIABLE FOR THE IDMS-TRACEABLE CREATININE METHODS.https://jasn.asnjournals.org/content/early/ /ASN.2809429059 DIGITAL STRATEGIST - Office Visiton 03-09 DIGITAL STRATEGIST - Office Visit Diagnoses/Problems Assessed Family history of Breast cancer, BRCA1 positive : Mother Screening for cervical cancer (V76.2) (Z12.4) Fibrocystic breast disease (FCBD), unspecified laterality (610.1) (N60.19) BRCA1 positive (V84.01) (Z15.01,Z15.09) Menorrhagia (626.2) (N92.0) Orders Cancer Antigen, 125; Status:Active; Requested for:20Mar2022; Cancer Antigen, GI Ca 19-9; Status:Active; Requested for:20Mar2022; Mamm - Digital Diagnostic Mammogram Bilateral w/ Tomosynthesis; Status:Hold For - Scheduling; Requested for:20Mar2022; Radiologist to Determine Optimal Study : Y What are the patient's signs and symptoms? : BRCA positive with very dense breasts Ultrasound Pelvis Transabdominal With Transvaginal; Status:Hold For - Scheduling; Requested for:20Mar2022; Radiologist to Determine Optimal Study : Y What are the patient's signs and symptoms? : BRCA positive with very dense breasts PAP BOWLING BALL ENGRAVER, Cytology; Status:In Progress - Specimen/Data Collected,Retrospect ofelia Authorization; Done: 20Mar2022 Last Menstrual Period (LMP): : 03/07/2022 PAP - Site : CERVICAL Cytology Order : ThinPrep PAP, Screening, HPV CoTest - Include Genotyping Provider Impressions Patient is a 36-year-old woman who comes in for routine BOWLING BALL ENGRAVER exam Pap smear with cotesting done. BRCA1 positive. We will get a diagnostic mammogram because of her history and fibrocystic dense breast. Patient has consultation with the breast surgeon this month and is contemplating having the bilateral mastectomy with reconstruction. Additionally if she decides not to pursue the mastectomy at this point we will order an MRI in 6 months and stagger those 2 tests every 6 months mammogram and MRI. Patient also at risk for ovarian cancer will order an ultrasound and a CA125 and a CA 19-9. If they return normal we will repeat them in 6 months and patient was advised that the recommendations are to do a BSO. Patient has been having slightly progressively heavier periods will evaluate with ultrasound and if any pathology found may recommend a hysterectomy at the time of her BSO Chief Complaint New patient here today for yearly exam. Her last pap was 2019 at [facility], Last pap 2019 Patient is BRACA 1 positive. She has concerns of heavy periods her last 2 cycles requiring more super tampons daily. 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 Patient reports that she has a family history of breast cancer and has numerous family members that have tested positive for the BRCA gene as well as herself. Patient reports that she was first diagnosed approximately 10 years ago and was having mammograms and MRIs every year staggered every 6 months. However the patient reports that she has not had a mammogram in a couple years at this point. Patient reports that she has never had an ultrasound to look at her ovaries. Patient also reports that she has never had any type of evaluation of the ovaries including the CA125. Patient was previously told when she first tested positive for BRCA1 was that as soon as she was done with childbearing she should have a bilateral mastectomy and a total hysterectomy with BSO. Patient is feeling like she is prepared to move forward with those recommendations at this point. Patient reports that her periods have began to become a little bit heavier. It used to be that she would have heavy bleeding on the first day but now the bleeding is becoming heavy for 3 days. Patient denies a history of abnormal Pap smears and has no additional concerns. Review of Systems Constitutional: Denies any change in weight. Cardiovascular: Denies any chest pain or palpitations. Respiratory: Denies any shortness of breath or cough. Gastrointestinal: Denies any changes in her bowel habits. Genitourinary: as noted in HPI. Musculoskeletal: Denies any change in her mobility. Psychiatric: Denies any change in her mood or in her sleep. Active Problems Problems Adjustment disorder with mixed anxiety and depressed mood (309.28) (F43.23) BRCA1 positive (V84.01) (Z15.01,Z15.09) Encounter for screening for cardiovascular disorders (V81.2) (Z13.6) Past Medical History Problems History of Menstruation age 12 History of NVD (normal vaginal delivery) (650) (O80) [id number] weeks- PCMATFK-GLOR-9 lbs 7 oz History of Pap test, as part of routine gynecological examination (V76.2) (Z01.419) 2019-[facility] Argueta Surgical History Problems History of Tonsillectomy with adenoidectomy 1988 Family History Mother Family history of Breast cancer, BRCA1 positive Family history of malignant neoplasm of thyroid (V16.8) (Z80.8) Family history of rheumatoid arthritis (V17.7) (Z82.61) Father Family history of hypertension (V17.49) (Z82.49) Sister Family history of asthma (V17.5) (Z82.5) Paternal Grandmother Family history of malignant neoplasm of breast (V16.3) (Z80.3) Family history of micah (more content not included)... Normal [facility] IO UA (nonautomated w/o micr oscopy)on 01-29-2022 Protein (U) [Mass/Vol] Negative [facility] Work Phone: IO UA (nonautomated w/o microscopy) Normal [facility] Work Phone: IO UA (nonautomated w/o microscopy) Negative [facility] Work Phone: IO UA (nonautomated w/o microscopy) 7.5 1 [facility] Work Phone: IO UA (nonautomated w/o microscopy) (++)moderate - 40 Abnormal -[facility] Work Phone: IO UA (nonautomated w/o microscopy) 1.010 1 [facility] Work Phone: IO UA (nonautomated w/o microscopy) Clear [facility] Work Phone: IO UA (nonautomated w/o microscopy) Yellow [facility] Work Phone: LMPon 01-29-2022 Fall risk assessment a) No falls within the last year [facility] Work Phone: Last menstrual period start date 08Jan2022 [facility] Work Phone: Tobacco use status CP b) No M [facility] Work Phone: Office Visiton 01-29-2022 Follow-up visit Diagnoses/Problems Encounter for preventive health examination (V70.0) (Z00.00) Encounter for screening for cardiovascular disorders (V81.2) (Z13.6) Adjustment disorder with mixed anxiety and depressed mood (309.28) (F43.23) BRCA1 positive (V84.01) (Z15.01,Z15.09) Orders Adjustment disorder with mixed anxiety and depressed mood [facility] Referral Evaluation and Treatment Evaluate AND Treat Status: Temporary Deferral - Other 02/21/2022 1st call 02.14.2022 left a message..LA BRCA1 positive High Risk Breast Cancer Referral Evaluation and Treatment Evaluate AND Treat Status: Hold For - Scheduling Requested for: 29Jan2022 spoke with her regarding the referral. She is currently on vacation. emailed info to call and schedule when back in town. f/u in February Myra Milligan [facility] [phone] Encounter for screening for cardiovascular disorders Lipid Panel; Status:Active; Requested for:29Jan2022; Health Maintenance IO UA (nonautomated w/o microscopy); Status:Complete; Done: 29Jan2022 10:36AM Health Maintenance, Encounter for screening for cardiovascular disorders Comprehensive Metabolic Panel; Status:Active; Requested for:29Jan2022; SocHx: Non-smoker Tobacco Use Screening; Status:Complete; Done: 29Jan2022 Patient Discussion/Summary Schedule with counselling. I think this will help you the most. Schedule with the High Risk Breast Clinc. Get blood test done after fasting. See me again if you feel you need medication. See me once a year. Provider Impressions 1. Adjustment disorder with mixed anxiety and depression: I think she would benefit much more from counseling rather than medication. She will try to schedule with counseling through since she is an employee. 2. BRCA positive: Referred her to the high risk breast clinic for follow-up. Lab orders given for screening blood work. 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 [employer] her last visit with a pcp was in 2019 she lives with abby and her son ( he is 19) [facility]: mother living: had thyroid cancer and breast cancer is on levothyroxoine has RA father: states every female on his side had breast cancer' she is BRCA 1+ 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, she did see Dr Argueta in [place] she is struggling with feelings of loss since her son graduated from high school (she became with him in her senior year of she and her abby have been unable to have children together) feels like her identity encompassed being [place]'s mom and now she feels like she is not needed and this is painful for her to deal with she still enjoys things she does with family and friends,is trying to fill her life with other things, her relationship with abby is good but she feels like she can't get past this ache she has right now says i just don't feel as needed and it hurts' she admits to some nervousness and sadness, mainly when she thinks about how life is changing it is not interfering in her ability to do her work well she denies thoughts of self harm, or of wishing that she would just not wake up says she wonders if she needs a medicine or not Review of Systems Cardiovascular: no chest pain and no palpitations. Respiratory: no shortness of breath. Gastrointestinal: no abdominal pain, no constipation and no diarrhea. Neurological: no headache. She denies feeling down, depressed, or hopeless over the past two weeks. She denies feeling little interest or pleasure in doing things over the past two weeks. Social History Non-smoker (V49.89) (Z78.9) Allergies No Known Drug Allergies Recorded By: Lou Moran; 01/29/2022 10:28:25 AM Vitals Vital Signs Recorded: 29Jan2022 10:27AM Heart Rate93 [id number] Xgatvzmna08 Height5 ft 2 in Tofhxb097 lb 1 oz BMI Bvxdhjnxwn31.53 kg/m2 BSA Calculated1.67 Tobacco Useb) No Fall Screeninga) No falls within the last year [id number] Physical Exam GEN: NAD HEENT: EAC normal, both TM clear. Both sclerae clear. Posterior pharynx is clear. NECK: no thyroid enlargement, no mass, no submandibular, cervical or supraclavicular adenopathy. LUNGS: clear bilaterally CV: regular S1/ S2 ; no murmurs ABD: soft,normal bowel sounds, nontender, no masses or organomegaly to palpation EXT: no lower extremity edema Signatures Electronically signed by : Chely Davis DO; Feb 23 2022 8:44PM EST (Author) Normal [facility] Vital Signs Date Time Vital Sign Value Performing Clinician Facility 09-05-2024 09:46-0500 Body mass index (BMI) [Ratio] 29.43 kg/m2 Kimberley Vazquez DO Work Phone: [facility] 09-05-2024 09:46-0500 Body temperature 97.7 [degF] Kimberley Husain Antoninasandrine DO Work Phone: [facility] 09-05-2024 09:46-0500 Body weight 72.98 kg Kimberley Vazquez DO Work Phone: [facility] 09-05-2024 09:46-0500 Diastolic blood pressure 77 mm[Hg] Kimberley Vazquez DO Work Phone: [facility] 09-05-2024 09:46-0500 Heart rate 87 /min Kimberley Vazquez DO Work Phone: [facility] 09-05-2024 09:46-0500 Respiratory rate 16 /min Kimberley Vazquez DO Work Phone: [facility] 09-05-2024 09:46-0500 SaO2% (BldA) [Mass fraction] 98 % Kimberley Vazquez DO Work Phone: [facility] 09-05-2024 09:46-0500 Systolic blood pressure 118 mm[Hg] Kimberley Vazquez DO Work Phone: [facility] 10-09-2023 16:28-0500 Body height 157.5 cm Victoria Ramseyko DO Work Phone: [facility] 10-09-2023 16:28-0500 Body mass index (BMI) [Ratio] 26.06 kg/m2 Victoria Ramseyko DO Work Phone: [facility] 10-09-2023 16:28-0500 Body temperature 98.6 [degF] Victoria Ramseyko DO Work Phone: [facility] 10-09-2023 16:28-0500 Body weight 64.64 kg Victoria Ramseyko DO Work Phone: [facility] 10-09-2023 16:28-0500 Diastolic blood pressure 61 mm[Hg] Victoria Mesko DO Work Phone: [facility] 10-09-2023 16:28-0500 Heart rate 85 /min Victoria Mesko DO Work Phone: [facility] 10-09-2023 16:28-0500 Respiratory rate 12 /min Victoria Roxyko DO Work Phone: [facility] 10-09-2023 16:28-0500 SaO2% (BldA) [Mass fraction] 98 % Victoria Mesko DO Work Phone: [facility] 10-09-2023 16:28-0500 Systolic blood pressure 111 mm[Hg] Victoria Mesko DO Work Phone: [facility] 09-17-2023 14:39-0500 Diastolic blood pressure 79 mm[Hg] Victoria Mesko DO Work Phone: [facility] 09-17-2023 14:39-0500 Heart rate 77 /min Victoria Mesko DO Work Phone: [facility] 09-17-2023 14:39-0500 Respiratory rate 14 /min Victoria Mesko DO Work Phone: [facility] 09-17-2023 14:39-0500 SaO2% (BldA) [Mass fraction] 97 % Victoria Mesko DO Work Phone: [facility] 09-17-2023 14:39-0500 Systolic blood pressure 117 mm[Hg] Victoria Mesko DO Work Phone: [facility] 08-07-2023 16:26-0500 Body mass index (BMI) [Ratio] 26.7 kg/m2 Victoria Mesko DO Work Phone: [facility] 08-07-2023 16:26-0500 Body temperature 98.29 [degF] Victoria Mesko DO Work Phone: [facility] 08-07-2023 16:26-0500 Body weight 66.22 kg Victoria Mesko DO Work Phone: [facility] 08-07-2023 16:26-0500 Diastolic blood pressure 54 mm[Hg] Victoria Mesko DO Work Phone: [facility] 08-07-2023 16:26-0500 Heart rate 67 /min Victoria Mesko DO Work Phone: [facility] 08-07-2023 16:26-0500 Respiratory rate 16 /min Victoria Mesko DO Work Phone: [facility] 08-07-2023 16:26-0500 SaO2% (BldA) [Mass fraction] 100 % Victoria Mesko DO Work Phone: [facility] 08-07-2023 16:26-0500 Systolic blood pressure 110 mm[Hg] Victoria Mesko DO Work Phone: [facility] 05-16-2023 07:05-0400 Body height 157.5 cm Victoria Mesko DO Work Phone: [facility] 05-16-2023 07:05-0400 Body mass index (BMI) [Ratio] 26.69 kg/m2 Victoria Mesko DO Work Phone: [facility] 05-16-2023 07:05-0400 Body temperature 98.01 [degF] Victoria Mesko DO Work Phone: [facility] 05-16-2023 07:05-0400 Body weight 66.18 kg Victoria Roxyko DO Work Phone: [facility] 05-16-2023 07:05-0400 Diastolic blood pressure 67 mm[Hg] Victoria Mesko DO Work Phone: [facility] 05-16-2023 07:05-0400 Heart rate 108 /min Victoria Mesko DO Work Phone: [facility] 05-16-2023 07:05-0400 Respiratory rate 14 /min Victoria Mesko DO Work Phone: [facility] 05-16-2023 07:05-0400 SaO2% (BldA) [Mass fraction] 97 % Victoria Mesko DO Work Phone: [facility] 05-16-2023 07:05-0400 Systolic blood pressure 108 mm[Hg] Victoria Mesko DO Work Phone: [facility] 03-20-2022 09:05-0400 Body height 157.48 cm Chely Davis Work Phone: [employer] [facility] [place] [address] [employer] Work Phone: 03-20-2022 09:05-0400 Body mass index (BMI) [Ratio] 26.69 kg/m2 Chely Davis Work Phone: [employer] [facility] [address] [employer] Work Phone: 03-20-2022 09:05-0400 Body surface area Derived from formula 1.67 m2 Chely Davis Work Phone: [address] Work Phone: 03-20-2022 09:05-0400 Body weight 66.2 kg Chely Davis Work Phone: [address] Work Phone: 03-20-2022 09:05-0400 Diastolic blood pressure 78 mm[Hg] Chely Davis Work Phone: [address] Work Phone: 03-20-2022 09:05-0400 Systolic blood pressure 128 mm[Hg] Chelyjose Davis Work Phone: [address] Work Phone: 01-29-2022 10:27-0400 Body height 157.48 cm Chely Davis Work Phone: [facility] Work Phone: 01-29-2022 10:27-0400 Body mass index (BMI) [Ratio] 26.53 kg/m2 Chelyjose Davis Work Phone: [facility] Work Phone: 01-29-2022 10:27-0400 Body surface area Derived from formula 1.67 m2 Chelyjose Davis Work Phone: [facility] Work Phone: 01-29-2022 10:27-0400 Body weight 65.8 kg Chelyjose Davis Work Phone: [facility] Work Phone: 01-29-2022 10:27-0400 Diastolic blood pressure 77 mm[Hg] Chely Jada Davis Work Phone: [facility] Work Phone: 01-29-2022 10:27-0400 Heart rate 93 /min Chely Davis Work Phone: [facility] Work Phone: 01-29-2022 10:27-0400 Systolic blood pressure 112 mm[Hg] Chely Davis Work Phone: [facility] Work Phone: Encounters Encounter Date Encounter Type Care Provider Facility Start: 03-24-2025 Encounter for genera l adult medical examination without abnormal findings [facility] Start: 03-19-2025 End: 03-19-[address] Fortunato Berry DO Work Phone: [facility] Start: 03-19-2025 End: 03-19-[address] Fortunato Berry DO -[facility] Work Phone: Start: 03-19-2025 End: 03-19-2025 ambulatory Fortunato Berry Facility:[facility] Start: 09-05-2024 End: 09-05-2024 Office outpatient visit 15 minutes Kimberley Vazquez DO Work Phone: [facility] Comment on above: BRCA1 positive (Prim trinidad Dx); Acute stress reaction; Adjustment disorder with mixed anxiety and depressed mood; Screening mammogram for breast cancer Start: 09-05-2024 End: 09-05-2024 ambulatory KIMBERLEY VAZQUEZ [facility] Ambulatory Start: 07-10-2024 End: 07-10-2024 ambulatory [facility] Start: 11-22-2023 End: 11-23-2023 ambulatory [facility] Start: 11-22-2023 End: 11-22-2023 Subsequent hospital visit by physician Rad External Film [facility] Comment on above: Arrived Start: 11-21-2023 End: 11-22-2023 ambulatory [facility] Start: 11-21-2023 End: 11-21-2023 Subsequent hospital visit by physician Brandon [id number] [facility] Comment on above: Screening mammogram for breast cancer Start: 11-06-2023 End: 11-07-2023 ambulatory [facility] Start: 11-06-2023 End: 11-07-2023 Encounter for general adult medical examination without abnormal findings [facility] Start: 10-21-2023 End: 10-21-2023 ambulatory [facility] Start: 10-21-2023 End: 10-22-2023 ambulatory [facility] Start: 10-09-2023 End: 10-09-2023 Patient encounter status Victoria Farmer DO Work Phone: [facility] Work Phone: Start: 10-09-2023 End: 10-09-2023 Periodic preventive med est patient 40-64yrs Victoria Farmer DO Work Phone: [facility] Comment on above: Encounter for wellne ss examination in adult (Primary Dx); Screening mammogram for breast cancer; Overweight with body mass index (BMI) of 26 to 26.9 in adult Start: 10-09-2023 End: 10-09-2023 ambulatory [facility] Start: 10-09-2023 End: 10-09-2023 Encounter for general adult medical examination without abnormal findings [facility] Start: 09-18-2023 End: 09-18-2023 ambulatory [facility] Start: 09-17-2023 End: 09-17-2023 Office outpatient visit 10 minutes Victoria Farmer DO Work Phone: [facility] Comment on above: Dental infection (Pr imary Dx) Start: 09-17-2023 End: 09-17-2023 ambulatory [facility] Start: 08-07-2023 End: 08-07-2023 Erroneous Encounter Victoria Farmer DO Work Phone: [facility] Comment on above: ERRONEOUS ENCOUNTER- -DISREGARD (Primary Dx); Acute stress reaction Start: 05-30-2023 End: 05-31-2023 ambulatory VICTORIA Aquino MARLENY [facility] Start: 05-16-2023 End: 05-16-2023 Office outpatient visit 15 minutes Victoria Farmer DO Work Phone: [facility] Comment on above: Acute stress reactio n (Primary Dx); Overweight with body mass index (BMI) of 26 to 26.9 in adult Start: 03-28-2022 Chart Update Chely Elias LuanneAccolo Work Phone: [employer] Work Phone: Start: 03-21-2022 Chart Update Chely Jada LuanneAccolo Work Phone: [employer] Work Phone: Start: 03-20-2022 Initial preventive medicine new pt age 18-39yrs Chely Jada LuanneAccolo Work Phone: [employer] Work Phone: Start: 01-30-2022 Chart Update Chely Jada LuanneAccolo Work Phone: [employer] Work Phone: Start: 01-29-2022 Office outpatient ne w 45 minutes Chely Elias Ryan Work Phone: [facility] Work Phone: Start: 01-29-2022 Patient encounter procedure Chely Jada Ryan Work Phone: [facility] Work Phone: Encounter for gynecological examination (general) (routine) without abnormal findings Chely Elias LuanneAccolo Work Phone: [employer] Work Phone: Comment on above: [address] [place] [address] Dr Argueta; Procedures Date Procedure Procedure Detail Performing Clinician Start: 11-22-2023 BI TRANSFER OF OUTSI DE FILMS VICTORIA FARMER Start: 11-22-2023 End: 11-22-2023 Study Interpretation of outside study Victoria Farmer DO Work Phone: Start: 11-21-2023 BI MAMMO BILATERAL SCREENING TOMOSYNTHESIS VICTORIA FARMER Start: 11-21-2023 Mammography Kimberley Vazquez DO Work Phone: Start: 11-06-2023 CBC panel - Blood by Automated count VICTORIA FARMER Start: 11-06-2023 Comprehensive metabo lic 2000 panel - Serum or Plasma VICTORIA FARMER Start: 11-06-2023 Lipid panel VICTORIA FARMER Start: 11-06-2023 TSH WITH REFLEX TO F REE T4 IF ABNORMAL VICTORIA FARMER Start: 11-06-2023 Lipid 1996 panel - S april or Plasma [facility] Start: 10-21-2023 XR RIBS 3 VIEWS BILA TERAL WITH CHEST PA OR AP VICTORIA FARMER Start: 05-30-2023 TOBACCO SCREEN [facility] DICAL PLAN ONLY VICTORIA FARMER Start: 03-20-2022 Lipid 1996 panel - S april or Plasma Victoria Farmer DO Work Phone: Start: 03-20-2022 Microscopic observat ion [Identifier] in Cervix by Cyto stain Vcitoria Farmer DO Work Phone: Tonsillectomy and adenoidectomy Chely Davis Work Phone: Comment on above: 1988; Plan of Treatment Date Care Activity Detail Author Start: 2033 Zoster Vaccines (1 of 2) Zoste r Vaccines (1 of 2) [facility] Start: 11-06-2028 Lipid panel Lipid Panel [facility] Start: 03-20-2027 Lipid panel Lipid Panel [facility] Start: 03-20-2025 Screening for malign ant neoplasm of cervix [facility] Start: 11-20-2024 Screening for malign ant neoplasm of breast Mammogram [facility] Start: 10-10-2024 Yearly Adult Physical Yearly Adult P hysical [facility] Start: 09-05-2024 End: 11-06-2025 DBT Breast - bilateral BI mammo bilateral screening tomosynthesis Imaging Routine Screening mammogram for breast cancer Expected: 09/05/2024, Expires: 11/06/2025 [facility] Service Area Work Phone: Comment on above: Expected: 09/05/2024 , Expires: 11/06/2025 Start: 05-10-2024 COVID-19 Vaccine () COVID-19 Vaccine () [facility] Start: 11-21-2023 End: 11-21-2023 Patient encounter procedure 11/21/2023 10:15 AM EDT Office Visit [facility] Building [address] [facility] [address] [place] [address] Marian Yuen, CHANCERY CLERK-CNM, CHANCERY CLERK-PROMOTIONS REPRESENTATIVE, DNP [address] [address] Department of DIGITAL STRATEGIST-Nurse Midwifery [place], [place] [id number] [facility] Start: 10-09-2023 End: 10-09-2024 CBC panel - Blood by Automated count CBC Lab Routine Encounter for wellness examination in adult Expected: 10/09/2023 (Approximate), Expires: 10/09/2024 [facility] Work Phone: Comment on above: Expected: 10/09/2023 (Approximate), Expires: 10/09/2024 Start: 10-09-2023 End: 10-09-2024 Comprehensive metabolic 2000 panel - Serum or Plasma Comprehensive metabolic panel Lab Routine Encounter for wellness examination in adult Expected: 10/09/2023 (Approximate), Expires: 10/09/2024 [facility] Work Phone: Comment on above: Expected: 10/09/2023 (Approximate), Expires: 10/09/2024 Start: 10-09-2023 End: 12-07-2024 DBT Breast - bilateral BI mammo bilateral screening tomosynthesis Imaging Routine Screening mammogram for breast cancer Expected: 10/09/2023, Expires: 12/07/2024 [facility] Work Phone: Comment on above: Expected: 10/09/2023 , Expires: 12/07/2024 Start: 10-09-2023 End: 10-09-2024 Lipid 1996 panel - Serum or Plasma Lipid Panel Lab Routine Encounter for wellness examination in adult Expected: 10/09/2023 (Approximate), Expires: 10/09/2024 [facility] Work Phone: Comment on above: Expected: 10/09/2023 (Approximate), Expires: 10/09/2024 Start: 10-09-2023 End: 10-09-2024 Tsh With Reflex To Free T4 If Abnormal Tsh With Reflex To Free T4 If Abnormal Lab Routine Encounter for wellness examination in adult Expected: 10/09/2023 (Approximate), Expires: 10/09/2024 [facility] Service Area Work Phone: Comment on above: Expected: 10/09/2023 (Approximate), Expires: 10/09/2024 Start: 2023 Screening for malign ant neoplasm of breast Mammogram [facility] Start: 05-10-2023 COVID-19 Vaccine ( season) COVID-19 Vaccine ( season) [facility] Start: 05-10-2023 Influenza vaccination Influenza Vacc ine (#1) [facility] Start: 03-20-2022 NPV, Provider: Rachel Morse, Status: Pen, Time: 8:30 AM NPV, Provider: Rachel Morse, Status: Pen, Time: 8:30 AM [facility] Work Phone: Start: 12-07-2020 COVID-19 Vaccine (3 - Moderna series) COVID-19 Vaccine (3 - Moderna series) [facility] Start: 06-14-2020 DTaP/Tdap/Td Vaccine s (2 - Td or Tdap) DTaP/Tdap/Td Vaccines (2 - Td or Tdap) [facility] Start: 11-06-2016 Hepatitis B Vaccines (3 of 3 - 19+ 3-dose series) Hepatitis B Vaccines (3 of 3 - 19+ 3-dose series) [facility] Start: 2004 Screening for malign ant neoplasm of cervix HPV/Cotest [facility] Start: 2001 Diabetes mellitus screening Diabetes Screening [facility] Start: 2001 Hepatitis C screening Hepatitis C Sc reeveronika [facility] Start: 1996 Varicella vaccination Varicell a Vaccines (1 of 2 - 13+ 2-dose series) [facility] Start: 1984 MMR Vaccines (1 of 1 - Standard series) MMR Vaccines (1 of 1 - Standard series) [facility] Start: 1984 Varicella vaccination Varicell a Vaccines (1 of 2 - 2-dose childhood series) [facility] Start: 1983 HIV screening HIV Screening [facility] Start: 1983 Yearly Adult Physical Yearly Adult P hysical [facility] End: 11-21-2023 DBT Breast - bilateral [facility] Service Area Work Phone: Comment on above: Once for 1 Occurrenc es starting 11/21/2023 until 11/21/2023 Immunizations Immunization Date Immunization Notes Care Provider Juan hahn 07-10-2024 influenza, seasonal, injectable, preservative free Kimberley Vazquez DO Work Phone: [facility] Work Phone: 07-22-2019 influenza, injectabl e, quadrivalent, preservative free Dr. Fortunato Berry DO Work Phone: [facility] 06-06-2018 influenza, injectabl e, quadrivalent, preservative free Dr. Fortunato Berry DO Work Phone: [facility] 06-13-2016 hepatitis B vaccine, adult dosage Victoria Farmer DO Work Phone: [facility] Work Phone: 05-09-2016 hepatitis B vaccine, adult dosage Victoria Farmer DO Work Phone: [facility] 06-14-2010 tetanus toxoid, reduced diphtheria toxoid, and acellular pertussis vaccine, adsorbed Victoria Farmer DO Work Phone: [facility] Work Phone: Payers Date Payer Category Payer Self-pay 2025 Unknown [id number] 2022 Managed Care (Private) [employer] [id number] 2022 Unknown 2022 Unknown [id number] 1983 Unknown [id number] 1244 1983 Unknown [id number]. 1244 1983 Unknown [id number] [id number]. 1244 1983 Unknown [id number] [id number]. 1244 1983 Unknown [id number] [id number]. 1244 1983 Unknown [id number] [id number]. 1242 1983 Unknown [id number] [id number]. 1243 1983 Unknown [id number] [id number]. 1243 1983 Unknown [id number] [id number]. 1244 1983 Unknown [id number] [id number]. 1244 1983 Unknown [id number] [id number]. 1244 1983 Unknown [id number]. 1244 Private Health Insurance [id number] Unknown [id number] 462 Social History Date Type Detail Facility Start: 05-16-2023 End: 09-05-2024 Non-smoker [facility] Work Phone: Start: 08-05-2018 End: 05-15-2023 Tobacco smoking status NHIS Never smoked tobacco [facility] Work Phone: History of tobacco use Passive smoker [facility] Work Phone: Start: 05-15-2023 Tobacco use and exposure Smokeless tobacco non-user [facility] Work Phone: Start: 05-16-2023 End: 09-05-2024 Alcohol intake Current drinker of alcohol (finding) [facility] Work Phone: Start: 05-16-2023 End: 09-05-2024 Tobacco use panel [facility] Work Phone: Start: 1985 Sex Assigned At Not on file U [facility] Work Phone: Start: 07-28-2023 End: 09-05-2024 Exposure to SARS-CoV-2 (event) Not sure [facility] Start: 1985 Sex Assigned At Female W [facility] Clinical Notes 03-20-2012 to 09-05-2024 Assessment & Plan Note - Kimberley Vazquez DO - 09/05/2024 2:10 PM ESTAssessment & Plan Note - Kimberley Vazquez, DO - 09/05/2024 2:10 PM ESTPatient Instructions Note Date & Type Note Facility 09-05-2024 Evaluation + Plan note Associated Problem(s): BRCA1 positive Mammogram order placed; due for annual pap, will do Saturday [facility] Work Phone: 09-05-2024 Miscellaneous Notes Associated Problem(s): BRCA1 positive Mammogram order placed; due for annual pap, will do Saturday documented in this encounter [facility] Work Phone: 09-05-2024 History of Presen t illness Narrative Subjective Patient ID: Maribel Mosquera is a 38 y.o. female who presents for Follow-up, Anxiety, and Depression. HPI DEPRESSION/ANXIETY Patient is taking and tolerating the medications as prescribed. Patient denies suicidal ideation or homicidal ideation. Patient denies any symptoms of alex such as pressured speech, impulsive purchases. Patient reports good control on the current medication. Patient is satisfied with their current regimen and wishes to continue. Will be better after leaves hostile workplace Actually in a place of calm outside of work due to upcoming new job Plans to integrate wellness practices (exercise, eating better, less stress, etc) Review of Systems Objective BP 118/77 (BP Location: Right arm, Patient Position: Sitting, BP Cuff Size: Adult) Pulse 87 Temp 36.5 C (97.7 F) (Temporal) Resp 16 Wt 73 kg (160 lb 14.4 oz) LMP 08/18/2024 (Exact Date) SpO2 98% BMI 29.43 kg/m Physical Exam Constitutional: General: She is not in acute distress. Appearance: Normal appearance. She is normal weight. She is not ill-appearing. Neurological: Mental Status: She is alert. Psychiatric: Mood and Affect: Mood normal. Behavior: Behavior normal. Thought Content: Thought content normal. Assessment/Plan Problem List Items Addressed This Visit ICD-10-CM Adjustment disorder with mixed anxiety and depressed mood F43.23 BRCA1 positive - Primary Z15.01, Z15.09 Mammogram order placed; due for annual pap, will do Saturday Acute stress reaction F43.0 Relevant Medications sertraline (Zoloft) 50 mg tablet Other Visit Diagnoses Codes Screening mammogram for breast cancer Z12.31 Relevant Orders BI mammo bilateral screening tomosynthesis Set up for pap on sat, having some discharge - needs pap due to BRCA 1 positive documented in this encounter [facility] Work Phone: 09-05-2024 Instructions Kimberley Vazquez DO - 09/05/2024 11:30 AM EST 1) Get in to therapy no questions asked 2) I recommend considering starting a magesium supplement. Different types of magnesium and their uses: For bowels: To help keep bowels moving (constipation prevention/treatment) magnesium oxide or magnesium citrate (very little magnesium absorbed) For muscle cramping, sleep, and mood: I recommend trying the inexpensive option first, this include magnesium chloride or magnesium glycinate 200-500 mg daily (if bowels become too loose back down dose) If using for sleep, mood, focus and mag chloride or mag glycinate do not seem to be helping: Can try more expensive ($$$) magnesium with best TOW TRUCK DISPATCHER (brain) penetration, for sleep, focus, mood - magnesium L threonate ,or threonine, or Magtein - 2000 mg, between 150 and 450 mg elemental magnesium in that 2000 mg depending on brand. This can be purchased online ([employer] has one brand for as little as $30/mo). (For you, mag glycinate or mag threonate/ mag -l threonene) 3) Add exercise, creativity, healthy habits into your life MOOD Continue present regimen. As always, lifestyle measures as recommended below. Nutrition plays a large role in how we feel, including influencing or mood. For overall health as well as mental well-being, would recommend limitation of refined carbohydrates such as pasta, pretzels, crackers, breads, alcohol, sugar sweetened foods or beverages , pastries, cereals, or bagels. Recommend eating lots of vegetables, lean proteins, some fruits. Eat small amounts of healthy fat daily, such as a handful of almonds or walnuts, a serving of salmon, a generous splash of olive oil on your salad, an avocado. Physical activity also positively impacts mood. Anxiety and depression can be significantly improved with consistent exercise. The recommended long-term goal is 4-6 days per week, 30 minutes on those days. Even starting with 5 minutes of brisk walking a couple of times a day a few times a week is a great start. Consider starting an exercise routine such as Yoga with Nancie , which has free yoga on line through You Tube. Cerebrex walking videos also offer free exercise sessions on line. For time efficient but challenging strength and cardio exercises, consider adding in some high intensity interval training (HIIT) sessions such as the free 7 min workout Tabata songs on You Tube . Journaling, or writing down thoughts, can be therapeutic. Starting or continuing a gratitude journal to help you focus on positive things in life can make a big difference with depression or anxiety. Consider writing down 3 things each day for which you are grateful, such as the sound of birds outside, the comfort of a cup of coffee, the company of a pet, etc. Reflect back on that at the end of each week and relive those moments of gratitude. [place]-3 fatty acid supplementation may also help mood. Fish oil or krill oil, up to 1000 mg daily, can positively influence mood in addition to above lifestyle measures. Meditation can be helpful for many challenges we face such as anxiety, depression, and stress. Like exercise brings about fitness and well-being for the body, meditation can bring fitness to the mind creating a calmer, more positive mental state. There are many good resources for more information on meditation, including the web sites www.nsm-wo-dzikdtek.org , www.calm.com, smart phone applications such as Calm: Meditate and relax with guided mindfulness (free) , Meditation Studio by Abebe, ($3.99) Yumiko ($4.99), and Head Space (mario varies, free intro with options for subscriptions). It is recommended to remove yourself from technology and bustle every day - take a 2 minute walk outside at lunch, take a hike for [address] home from work, get up 15 minutes early and find something peaceful and calming on which to focus, such as your breathing, sounds of nature, looking at trees or even a pleasant picture or houseplant. Building calm into your day can set the tone, and quiet the undercurrent of thoughts. Daily practice can make a significant positive difference. Counseling services can also be extremely helpful. Call your insurance to see what agencies are covered. If covered, a commonly used agency by our patients is [facility] in [place] or [place] ([phone]). Follow up for pap on Saturday BRCA-1 pos documented in this encounter [facility] Work Phone: 10-09-2023 History of Presen t illness Narrative Subjective Patient ID: Maribel Mosquera is a 38 y.o. female who presents for Annual Exam. HPI Diet: well rounded Supplements/vitamins: MV Alcohol use: socially Caffeine intake: coffee daily Exercise: intermittent Sleep: see below Last dental appointment: routinely Last eye appointment: 2 years ago Anxiety/Depression: PHQ-9: 9 Menstrual cycles: 2 periods a month since August Contraception: none Last pap smear: BOWLING BALL ENGRAVER-pending Mammogram: due Fmhx breast cancer: +fmhx (mom, significant on paternal side) Cscope: n/a Fmhx colon cancer: maternal gpa, maternal aunt Tobacco use/Lung cancer screening: N Recreational drug use: N Immunizations: due for Tdap? Patient reports she had Tdap in 2021. Doing well on sertraline on 50mg. No adverse effects. Having issues falling asleep, takes melatonin, which helps sometimes. Review of Systems All other systems reviewed and are negative. Objective BP 111/61 (BP Location: Right arm, Patient Position: Sitting, BP Cuff Size: Adult) Pulse 85 Temp 37 C (98.6 F) (Temporal) Resp 12 Ht 1.575 m (5' 2) Wt 64.6 kg (142 lb 8 oz) LMP 09/26/2023 SpO2 98% BMI 26.06 kg/m Physical Exam Constitutional: Well developed, well nourished, alert and in no acute distress. Head and Face: Normocephalic, atraumatic. Eyes: Normal external exam. Pupils equally round and reactive to light with normal accommodation and extraocular movements intact. ENT: External inspection of ears normal, tympanic membranes visualized and normal. Nasal mucosa, septum, and turbinates normal. Oral mucosa moist, oropharynx clear. Neck: Supple, no lymphadenopathy or masses. Thyroid not enlarged, no palpable nodules. Cardiovascular: Regular rate and rhythm, normal S1 and S2, no murmurs, gallops, or rubs. Radial pulses normal. No peripheral edema. No carotid bruits. Pulmonary: No respiratory distress, lungs clear to auscultation bilaterally. No wheezes, rhonchi, rales. Abdomen: Soft, nontender, nondistended, normal bowel sounds. No masses palpated. Musculoskeletal: Gait normal. Muscle strength/tone normal of all 4 extremities. Normal range of motion of all extremities. Skin: Warm, well perfused, normal skin turgor and color, no lesions or rashes noted. Neurologic: Cranial nerves II-XII grossly intact. Deep tendon reflexes were 2+ and symmetric. Sensation normal bilaterally. Psychiatric: Mood calm and affect normal. Assessment/Plan Recommendations for women annual wellness exam: Make sure screenings for cervical and breast cancer are up to date if applicable- pap smears age 21-65-BOWLING BALL ENGRAVER Discuss mammogram starting at age 40 or sooner if positive family history of breast cancer-ordered. STD screening Follow a healthy diet (Dash diet, Mediterranean diet) Exercise 150 min/wk Maintain healthy weight (BMI < 25)-your BMI is 26. Do not smoke Alcohol in moderation (up to 1 drink/day) Get enough sleep (7-8 hours/night) Take a vitamin with folic acid if possibility of Make sure immunizations are up to date (influenza, Tdap)-up to date. Premenopausal women need minimum 1,000 mg calcium and 600-800 IU vitamin D daily (combination of diet + supplement) Talk to your physician if you have concerns about depression or anxiety Visit dentist twice yearly Colon Cancer Screening-n/a Fasting labs ordered Insomnia-Unisom documented in this encounter [facility] Work Phone: 08-07-2023 History of Presen t illness Narrative Subjective Patient ID: Maribel Mosquera is a 37 y.o. female who presents for Follow-up, Anxiety, and Depression. HPI Review of Systems See HPI Objective BP 110/54 (BP Location: Left arm, Patient Position: Sitting, BP Cuff Size: Adult) Pulse 67 Temp 36.8 C (98.3 F) Resp 16 Wt 66.2 kg (146 lb) LMP 07/13/2023 (Exact Date) SpO2 100% BMI 26.70 kg/m Physical Exam Assessment/Plan documented in this encounter [facility] Work Phone: 05-16-2023 History of Presen t illness Narrative Subjective Patient ID: Maribel Mosquera is a 37 y.o. female who presents for Depression. HPI PHQ-9: 11 LARS-7: 16 Took zoloft 12 years ago and tolerated it well and would like to restart this medication. Reports she took a very low dose and felt better on it Feels overwhelmed and crying more often than typical Denies SI or plan She is trying to set up counseling at this time, did counseling in the past Currently stressed with home life/relationship Reports she has supportive friends and family Review of Systems See HPI Objective BP 108/67 (BP Location: Left arm, Patient Position: Sitting, BP Cuff Size: Adult) Pulse 108 Temp 36.7 C (98 F) (Temporal) Resp 14 Ht 1.575 m (5' 2) Wt 66.2 kg (145 lb 14.4 oz) LMP 04/24/2023 SpO2 97% BMI 26.69 kg/m Physical Exam Constitutional: Well developed, well nourished, alert and in no acute distress Eyes: Normal external exam. Cardiovascular: No peripheral edema. Pulmonary: No respiratory distress Skin: Warm, well perfused, normal skin turgor and color. Neurologic: Cranial nerves II-XII grossly intact. Psychiatric: Mood calm and affect normal, crying Assessment/Plan START zoloft 25mg in the morning with food, may consider starting with 1/2 tablet for the first week and then increasing to the full tablet the second week. Start counseling Follow a healthy diet and avoid foods high in sugar, caffeine as this can cause irritability and labile mood Try to walk or exercise daily as this can improve anxiety/depression and reduce stress Follow up in 6 weeks documented in this encounter [facility] Work Phone: 03-20-2012 History of Presen t illness Narrative Patient is a 36-year-old who comes in for routine BOWLING BALL ENGRAVER exam. Patient reports that she has a family history of breast cancer and has numerous family members that have tested positive for the BRCA gene as well as herself. Patient reports that she was first diagnosed approximately 10 years ago and was having mammograms and MRIs every year staggered every 6 months. However the patient reports that she has not had a mammogram in a couple years at this point. Patient reports that she has never had an ultrasound to look at her ovaries. Patient also reports that she has never had any type of evaluation of the ovaries including the CA125. Patient was previously told when she first tested positive for BRCA1 was that as soon as she was done with childbearing she should have a bilateral mastectomy and a total hysterectomy with BSO. Patient is feeling like she is prepared to move forward with those recommendations at this point. Patient reports that her periods have began to become a little bit heavier. It used to be that she would have heavy bleeding on the first day but now the bleeding is becoming heavy for 3 days. Patient denies a history of abnormal Pap smears and has no additional concerns. [address] Work Phone: Evaluation note Diagnosis Acute stress reaction- Primary Unspecified acute reaction to stress Overweight with body mass index (BMI) of 26 to 26.9 in adult documented in this encounter [facility] Work Phone: Evaluation note* Diagnosis ERRONEOUS ENCOUNTER--DISREGARD- Primary Acute stress reaction Unspecified acute reaction to stress documented in this encounter [facility] Work Phone: Evaluation note* Diagnosis Dental infection- Primary documented in this encounter [facility] Work Phone: Evaluation note* Diagnosis Encounter for wellness examination in adult- Primary Screening mammogram for breast cancer Overweight with body mass index (BMI) of 26 to 26.9 in adult documented in this encounter [facility] Work Phone: Evaluation note* Diagnosis Screening mammogram for breast cancer documented in this encounter [facility] Work Phone: Evaluation note* Diagnosis BRCA1 positive- Primary Genetic susceptibility to malignant neoplasm of breast Acute stress reaction Unspecified acute reaction to stress Adjustment disorder with mixed anxiety and depressed mood Screening mammogram for breast cancer documented in this encounter [facility] Work Phone: Evaluation noteNo assessment information available [facility] Work Phone: History of Present illness Narrative* 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 * she now works at [employer] * her last visit with a pcp was in 2019 * she lives with abby and her son ( he is 19) * [facility]: * mother living: had thyroid cancer and breast cancer * is on levothyroxoine * has RA * father: * states every female on his side had breast cancer' * she is BRCA 1+ * 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, she did see Dr Argueta in [place] * she is struggling with feelings of loss since her son graduated from high school * (she became with him in her senior year of * she and her abby have been unable to have children together) * feels like her identity encompassed being Woodford's mom and now she feels like she is not needed and this is painful for her to deal with * she still enjoys things she does with family and friends,is trying to fill her life with other things, her relationship with abby is good but she feels like she can't get past this ache she has right now * says i just don't feel as needed and it hurts' * she admits to some nervousness and sadness, mainly when she thinks about how life is changing * it is not interfering in her ability to do her work well * she denies thoughts of self harm, or of wishing that she would just not wake up * says she wonders if she needs a medicine or not -[facility] Work Phone: History of Present illness Narrative* 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 * she now works at [employer] * her last visit with a pcp was in 2019 * she lives with abby and her son ( he is 19) * [facility]: * mother living: had thyroid cancer and breast cancer * is on levothyroxoine * has RA * father: * states every female on his side had breast cancer' * she is BRCA 1+ * 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, she did see Dr Argueta in [place] * she is struggling with feelings of loss since her son graduated from high school * (she became with him in her senior year of HS * she and her abby have been unable to have children together) * feels like her identity encompassed being Woodford's mom and now she feels like she is not needed and this is painful for her to deal with * she still enjoys things she does with family and friends,is trying to fill her life with other things, her relationship with abby is good but she feels like she can't get past this ache she has right now * says i just don't feel as needed and it hurts' * she admits to some nervousness and sadness, mainly when she thinks about how life is changing * it is not interfering in her ability to do her work well * she denies thoughts of self harm, or of wishing that she would just not wake up * says she wonders if she needs a medicine or not [facility] Work [facility]: History of Present illness Narrative* Victoria Farmer, DO - 09/17/2023 2:45 PM EST Subjective Patient ID: Maribel Moqsuera is a 38 y.o. female who presents for tooth pain and cheek swelling. HPI X2 days Reports she developed upper left gum pain/swelling- brushed teeth and swished mouth was and pain improved. Today, pain has returned and has some cheek swelling tenderness No fevers Dentist- Review of Systems See HPI Objective BP 117/79 (BP Location: Left arm, Patient Position: Sitting, BP Cuff Size: Adult) Pulse 77 Resp14 SpO2 97% Physical Exam Constitutional: Well developed, well nourished, alert and in no acute distress Eyes: Normal external exam. Neck: Supple, no lymphadenopathy or masses. Cardiovascular: No peripheral edema. Pulmonary: No respiratory distress Mouth: MMM, mild erythema and edema to upper left gumline surrounding posterior most 2 teeth Skin: Warm, well perfused, normal skin turgor and color. Neurologic: Cranial nerves II-XII grossly intact. Psychiatric: Mood calm and affect normal. Assessment/Plan START Amoxicillin antibiotic as directed, take with food. This medication may cause diarrhea and stomach upset. Schedule with dentist May take tylenol 1000mg with ibuprofen 600mg every 8 hours as needed for pain. [facility] reason for referral (narrative)* Consultation (Routine) - Authorized Specialty Diagnoses / Procedures Referred By Contchidi t Referred To Contact Primary Care Diagnoses Acute stress reaction Procedures Follow Up In Advanced Primary Care - PCP - Established Victoria Farmer DO [address] [facility], [address] [address] Referral ID Status Reason Start Date Expiration Date V isits Requested Visits Authorized [id number] Authorized 05/16/2023 11/12/2023 1 1 [facility] Work Phone: Reuozd for referral (narrative)No reason for referral information [facility] Work Phone: Chief Complaint * pt is here to establish a new pcp * pt would like to discuss anxiety and depression today * no falls, no smoking, no refills needed * FAZAL Portillo * NKDA * KB * pt is here to establish a new pcp * pt would like to discuss anxiety and depression today * no falls, no smoking, no refills needed * DDM Shweta Stark * NKDA * KB New patient here today for yearly exam. Her last pap was 2019 at [facility], Last pap 2019Patient is BRACA 1 positive. She has concerns of heavy periods her last 2 cycles requiring more super tampons daily. LMP:03/07/2022 Family History No Family History Records FoundUnknown Family Member Name Dates Details Breast cancer, BRCA1 positiv e: Mother Status:Active Family history of malignant neoplasm of thyroid: Mother(V16.8, Z80.8) Status:Active Family history of rheumatoid arthritis: Mother(V17.7, Z82.61) Status:Active Unknown Family Member Name Dates Details Breast cancer, BRCA1 positiv e: Mother Status:Active Family history of malignant neoplasm of thyroid: Mother(V16.8, Z80.8) Status:Active Family history of rheumatoid arthritis: Mother(V17.7, Z82.61) Status:Active Unknown Family Member Name Dates Details Breast cancer, BRCA1 positiv e: Mother Status:Active Family history of malignant neoplasm of thyroid: Mother(V16.8, Z80.8) Status:Active Family history of rheumatoid arthritis: Mother(V17.7, Z82.61) Status:Active Unknown Family Member Name Dates Details Family history of malignant neoplasm of thyroid: Mother(V16.8, Z80.8) Status:Active Family history of rheumatoid arthritis: Mother(V17.7, Z82.61) Status:Active Family history of hypertensi on: Father(V17.49, Z82.49) Status:Active Family history of asthma: Si ster(V17.5, Z82.5) Status:Active Family history of myocardial infarction: Paternal Grandfather(V17.3, Z82.49) Status:Active Family history of malignant neoplasm of breast: Paternal Grandmother, Aunt(V16.3, Z80.3) Status:Active Family history of malignant neoplasm of ovary: Paternal Grandmother, Paternal Aunt(V16.41, Z80.41) Status:Active Breast cancer, BRCA1 positiv e: Mother Status:Active Unknown Family Member Name Dates Details Family history of hypertensi on: Father(V17.49, Z82.49) Status:Active Family history of asthma: Si ster(V17.5, Z82.5) Status:Active Family history of myocardial infarction: Paternal Grandfather(V17.3, Z82.49) Status:Active Family history of malignant neoplasm of breast: Paternal Grandmother, Aunt(V16.3, Z80.3) Status:Active Family history of malignant neoplasm of ovary: Paternal Grandmother, Paternal Aunt(V16.41, Z80.41) Status:Active Breast cancer, BRCA1 positiv e: Mother Status:Active Family history of rheumatoid arthritis: Mother(V17.7, Z82.61) Status:Active Family history of malignant neoplasm of thyroid: Mother(V16.8, Z80.8) Status:Active Unknown Family Member Name Dates Details Family history of malignant neoplasm of thyroid: Mother(V16.8, Z80.8) Status:Active Family history of rheumatoid arthritis: Mother(V17.7, Z82.61) Status:Active Family history of hypertensi on: Father(V17.49, Z82.49) Status:Active Family history of asthma: Si ster(V17.5, Z82.5) Status:Active Family history of myocardial infarction: Paternal Grandfather(V17.3, Z82.49) Status:Active Family history of malignant neoplasm of breast: Paternal Grandmother, Aunt(V16.3, Z80.3) Status:Active Family history of malignant neoplasm of ovary: Paternal Grandmother, Paternal Aunt(V16.41, Z80.41) Status:Active Breast cancer, BRCA1 positiv e: Mother Status:Active Relationship Condition Age at Onset Recorded Date/T los mother Malignant neoplasm of breast Unknown Malignant neoplasm Unknown father Hypertension Unknown grandfather Malignant neoplasm of colon Unknown Hypertension Unknown Myocardial infarction Unknown grandmother Malignant neoplasm of breast Unknown aunt Malignant neoplasm of breast Unknown Summary Purpose Advance Directives No Advanced Directives Records FoundNo Advanced Directives Records FoundNo Advanced Directives Records FoundNo Advanced Directives Records FoundNo Advanced Directives Records FoundNo Advanced Directives Records Found Reason for Referral Specialty Diagnoses / Procedures Referred By Contac t Referred To Contact Radiology Diagnoses Screening mammogram for breast cancer Procedures BI mammo bilateral screening tomosynthesis Victoria Farmer DO [address] [facility], [address] [address] Referral ID Status Reason Start Date Expiration Date Visits Requested Visits Authorized [id number] Authorized Perform Procedure 10/09/2023 10/08/2024 1 1 Chief Complaint and Reason for Visit Chief Complaint Admit Date March 19, 2025 7:43 am Additional Source Comments INFORMATION SOURCE (unrecogn ized section and content) DATE CREATED AUTHOR 03/20/2022 [employer] DATE CREATED AUTHOR AUTHOR'S ORGANIZ ATION 06/02/2023 [facility] DATE CREATED AUTHOR AUTHOR'S ORGANIZ ATION 11/23/2023 [facility] DATE CREATED AUTHOR AUTHOR'S ORGANIZ ATION 11/28/2023 [facility] DATE CREATED AUTHOR AUTHOR'S ORGANIZ ATION 09/10/2024 [facility] DATE CREATED AUTHOR AUTHOR'S ORGANIZ ATION 03/28/2025 [facility] Reason for Visit (unrecogniz ed section and content) Reason Comments Depression Reason Comments Follow-up Anxiety Depression Specialty Diagnoses / Procedures Referred By Contac t Referred To Contact Primary Care Diagnoses Acute stress reaction Procedures Follow Up In Advanced Primary Care - PCP - Established Victoria Farmer DO [address] [facility], [address] [place] [address] Referral ID Status Reason Start Date Expiration Date V isits Requested Visits Authorized [id number] Authorized 05/16/2023 11/12/2023 1 1 Reason Comments Dental Pain Reason Comments Annual Exam Specialty Diagnoses / Procedures Referred By Contac t Referred To Contact Radiology Diagnoses Screening mammogram for breast cancer Procedures BI mammo bilateral screening tomosynthesis Victoria Farmer DO [address] [facility], [address] [place] [address] Referral ID Status Reason Start Date Expiration Date Visits Requested Visits Authorized [id number] Authorized Perform Procedure 10/09/2023 10/08/2024 1 1 Reason Comments Follow-up Anxiety Depression Care Teams (unrecognized sec tion and content) 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 Start Date End Date Chely Davis DO [address] [facility], [address] [place] [address] PCP - Employee ACO PCP 02/07/22 Victoria Farmer DO [address] [facility], [address] [place] [address] PCP - General Family Medicine 05/07/23 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 Start Date End Date Chely Davis DO [address] [facility], [address] [place] [address] PCP - Employee ACO PCP 02/07/22 Victoria Farmer DO [address] [facility], [address] [place] [address] PCP - General Family Medicine 05/07/23 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 Start Date End Date Chely Davis DO [address] [facility], [address] [place] [address] PCP - Employee ACO PCP 02/07/22 Victoria Farmer DO [address] [facility], [address] [place] [address] PCP - General Family Medicine 05/07/23 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 Start Date End Date Chely Davis DO [address] [facility], [address] [place] [address] PCP - Employee ACO PCP 02/07/22 Victoria Farmer DO [address] [facility], [address] [place] [address] PCP - General Family Medicine 05/07/23 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 Start Date End Date Victoria Farmer DO [address] [facility], [address] [place] [address] PCP - General Family Medicine 05/07/23 Victoria Farmer DO [address] [facility], [address] [place] [address] PCP - Employee ACO PCP 09/09/23 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 Start Date End Date Victoria Farmer DO [address] [facility], [address] [place] [address] PCP - General Family Medicine 05/07/23 Victoria Farmer DO [address] [facility], [address] [place] [address] PCP - Employee ACO PCP 09/09/23 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 Start Date End Date Victoria Farmer DO [address] [facility], [address] [place] [address] PCP - General Family Medicine 05/07/23 Victoria Farmer DO [address] [facility], [address] [place] [address] PCP - Employee ACO PCP 04/09/24 Team Status: Active Member Role/Relationship Status Dates Dr. Fortunato Berry DO Family Provider Active Dr. Fortunato Berry DO Primary Care Provider Active Team Status: Inactive Member Role/Relationship Status Dates Dr. Fortunato Berry DO Primary Care Provider Active Start: March 19, 2025 End: March 19, 2025 Dr. Fortunato Berry , DO Attending Provider Active Start: March 19, 2025 End: March 19, 2025 Dr. Fortunato Berry , DO Referring Provider Active Start: March 19, 2025 End: March 19, 2025 Goals (unrecognized section and content) Goals may be documented in a n alternate section FOR RECORDS PERTAINING TO PATIENTS WHO ARE OR HAVE BEEN ENROLLED IN A CHEMICAL DEPENDENCY/SUBSTANCEABUSE PROGRAM, SOME INFORMATION MAY BE OMITTED. This clinical summary was aggregated from multiple sources. Caution should be exercised in using it in the provision of clinical care. This summary normalizes information from multiple sources, and as a consequence, information in this document may materially change the coding, format and clinical context of patient data. In addition, data may be omitted in some cases. CLINICAL DECISIONS SHOULD BE BASED ON THE PRIMARY CLINICAL RECORDS. [facility] [employer] provides no warranty or guarantee of the accuracy or completeness of information in this document.
== END | disposition home or self-care (01) ==
PROVIDERS: PCP Family Medicine; Referring Provider Nurse Practitioner Family; Visit Provider Nurse Practitioner Family
DX: N63.22 Unspecified lump in the left breast, upper inner quadrant (principal)
CPT/HCPCS: 76642; 77062; 77066; G0279

== ENCOUNTER → 2025-06-16 | Outpatient (CLI) | payer OTHER, SELFPAY ==
--- NOTE | 2025-06-16 15:20 | BRBX_PTH ---
PATIENT: KAELYN MOSQUERA LOC: [facility] U#:[id number] AGE/SX: 39/F ROOM: RE06/16/[address]: Dr. Hailey Ledbetter MD : 1985 BED: DIS: 06/16/2025 SPEC #: [id number] RECD: 06/16/25 16:11 STATUS: SHAVONNE REQ #: [id number] KEITH: 06/16/25 15:[address]: Hailey Ledbetter DEPT: SURGICAL PATHOLOGY RECD BY: King Garcia ENTERED: 06/17/25 10:16 SP TYPE: BREAST BX OTHR DR: Dr. Fortunato Berry, DO Tissues: A - Left breast, NOS B - Left breast, NOS Procedures: Immunohistochemical Stains Surgery Specimen Level IV IHC Stain ADDITIONAL HEADER OPERATION: Biopsy of left breast mass x2 PRE-OP DIAGNOSIS: Left breast mass TISSUE SUBMITTED: A- Left breast mass *11o'clock, 8cm from nipple*, B- Left breast mass *1o'clock, 8cm from nipple* MICROSCOPIC DIAGNOSIS A. Breast, left, 11o'clock, 8cm FTN, biopsy: * Invasive ductal carcinoma, Grade 3 (See note) Note: Sections show an invasive ductal carcinoma, Grade 3 (tubules=3, nuclear pleomorphism=3, mitosis=3) measuring 0.38 cm in greatest dimension. The GATA3 and CK7 immunostains are positive. The synaptophysin shows weak non-specific staining and the p40 is negative. The findings support the diagnosis. ESTROGEN RECEPTOR (ER): Low positive, weak immunoreactivity in 1-5% of tumor cells. PROGESTERONE RECEPTROR ([place]): Negative, <1% immunoreactivity in tumor cells HER2/ANTELMO IHC: Negative, (0+, with membrane staining) KI67 IHC: >95% proliferation B. Breast, left, 1o'clock, 8cm FTN, biopsy: * Invasive ductal carcinoma, Grade 3 Note: Sections show an invasive ductal carcinoma, Grade 3 (tubules=3, nuclear pleomorphism=3, mitosis=3) measuring 0.65 cm in greatest dimension. The GATA3 and CK7 immunostains are positive. The synaptophysin shows weak non-specific staining and the p40 is negative. The findings support the diagnosis. ESTROGEN RECEPTOR (ER): Negative, <1% immunoreactivity in tumor cells PROGESTERONE RECEPTROR ([place]): Negative, <1% immunoreactivity in tumor cells HER2/ANTELMO IHC: Negative, (0+, with membrane staining) KI67 IHC: >95% proliferation COMMENT Both breast lesions have similar histologic features. The slides in part A and B are reviewed with Dr. Caldera in consultation. MICROSCOPIC DESCRIPTION Slides are reviewed. All matched controls reacted appropriately. These tests were developed and their performance characteristics determined by [facility]. They may not have been cleared or approved by the U.S. Food and Drug Administration. The FDA has determined that such clearance or approval is not necessary. The above immunohistochemical markers are viewed by the Pathologist. GROSS DESCRIPTION Received in 2 formalin containers labeled with the patient's name and date of . Designated as: A. L breast mass 11 o'clock are multiple avila-yellow fragmented tissue cores, 1.6 x 0.5 x 0.2 cm in aggregate. Entirely submitted in 1 cassette. B. L breast ass 1 o'clock are multiple pale avila-yellow fragmented tissue cores, 1.5 x 0.7 x 0.1 cm in aggregate. Entirely submitted in 1 cassette. Cold ischemic time: <1-minuteFormalin fixation time: 28 hours, 10 minutes [place] 06/17/2025PT:[id number]
== END | disposition home or self-care (01) ==
LOC: LABSPEC 16:13
PROVIDERS: PCP Family Medicine; Referring Provider Surgery; Visit Provider Surgery
DX: C50.212 Malignant neoplasm of upper-inner quadrant of left female breast (principal)
CPT/HCPCS: 88305; 88341; 88342

== ENCOUNTER → 2025-07-01 | Outpatient (CLI) | payer OTHER, SELFPAY ==
--- NOTE | 2025-07-01 15:52 | US_ITS ---
EXAM: Ultrasound of the right axilla. CLINICAL HISTORY: Evaluation for axillary lymph nodes. COMPARISON: Prior PET scan dated June 29, 2025. TECHNIQUE: Imaging of the right axilla was performed with ultrasound. FINDINGS: Multiple lymph nodes are seen. The largest lymph node measures 2 cm x 0.6 cm 5.7 cm. Biopsy recommended. US/Axilla - Right IMPRESSION: Multiple right axillary lymph nodes are seen. The largest measures 2 cm x 0.6 cm x 0.7 cm. Biopsy recommended. Reading Location: [id number]
== END | disposition home or self-care (01) ==
PROVIDERS: PCP Family Medicine; Referring Provider Internal Medicine Hematology & Oncology; Visit Provider Internal Medicine Hematology & Oncology
DX: R59.0 Localized enlarged lymph nodes (principal)
CPT/HCPCS: 76882

== ENCOUNTER → 2025-07-06 | Outpatient (CLI) | payer OTHER, SELFPAY ==
--- NOTE | 2025-07-06 10:15 | MRI_ITS ---
PROCEDURE: MRI/Breast Bilateral W/O and W
== END | disposition home or self-care (01) ==
PROVIDERS: PCP Family Medicine; Referring Provider Surgery; Visit Provider Surgery
DX: Z15.01 Genetic susceptibility to malignant neoplasm of breast (principal); Z15.09 Genetic susceptibility to other malignant neoplasm; Z80.3 Family history of malignant neoplasm of breast
CPT/HCPCS: 77049; A9575; A4216; C8908

== ENCOUNTER 2025-07-07 09:26 | Day surgery (SDC) | payer OTHER, SELFPAY ==
[2025-07-07] VITALS (7 sets, daily range): BP systolic 115–143; BP diastolic 65–96; PULSE 70–97; RESP 16–20; TEMP 36.1–36.9; O2SAT 98–100; BMI 30.6
--- NOTE | 2025-07-07 09:46 | PCM.PRE.AN2 ---
ASA Classification* ASA Classification ASA Classification: 2 Assessment & Plan Anesthesia* Anesthesia Assessment Anesthesia Assessment: Discussed sedation and/or anesthesia options, risks, benefits, and alternatives with patient/parents/legal guardian/POA. Questions invited. The patient/parents/legal guardian/POA seems to understand and agrees to proceed with anesthesia plan. Reviewed the physical assessment, medical history, allergy history and patient home medications list prior to surgery/procedure/anesthetic and documented any changes. Performed airway and anesthesia risk assessments. Anesthesia Type Anesthesia Type: MAC (GA bkup) Anesthesia Focused Assessment* Airway Assessment Mouth opens: >3 cm Mallampati Score: II Labs Anesthesia Preop lab: CBC WBC, (4.4-11.0) 7.2 K/mm3 06/24/25, 14:35 RBC, (4.2-5.4) 4.69 M/mm3 06/24/25, 14:35 Hgb, (12.0-15.0) 14.1 g/dL 06/24/25, 14:35 Hct, (37-47) 41.8 % 06/24/25, 14:35 Plt Count, (150-450) 230 K/mm3 06/24/25, 14:35 CHEMISTRY Potassium, (3.3-5.1) 4.0 mmol/L 06/24/25, 14:35 Sodium, (133-145) 138 mmol/L 06/24/25, 14:35 BUN, (4-19) 9 mg/dL 06/24/25, 14:35 Creatinine, (0.70-1.20) 0.75 mg/dL 06/24/25, 14:35 Glucose, (70-99) 120 mg/dL H 06/24/25, 14:35 TSH, (0.300-4.200) 1.290 uIU/mL 03/19/25, 07:49 COAG Urine Test Pending Today, 09:37 Pre-Assessment Diagnosis/Proposed Procedure Planned Operative Procedure(s): PORT PLACEMENT Anesthesia History 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 When Was Last Pacemaker Check QUESTION #4 FULL TEXT: You/Your Family Experience fever (hyperthermia) with Anesthesia Last Oral Intake Last Oral intake: Last Oral Intake NPO since Meds taken in AM with sips of water? 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 - basket maker Female Yes 07/01/25 08:36 HX of Motion Sickness No 07/01/25 08:36 HX of N/V After Surgery No 07/01/25 08:36 Non-Smoker Yes 07/01/25 08:36 Duration of Surgery greater No 07/01/25 08:36 than 60 minutes Number of Risk Factors 2 07/01/25 08:36 PONV Score Moderate Risk 07/01/25 08:36 Height & Weight Height & Weight: Anesthesia: Height & Weight Height 5 ft 2 in 06/30/25 11:10 Respiratory Assessment Respiratory Assessment - basket maker: Respiratory Tract Infection Hx - basket maker Hx Respiratory Tract Infection No 07/01/25 08:36 STOP Sleep Apnea STOP Sleep Apnea - basket maker: STOP Sleep Apnea - basket maker Hx Hypertension No 07/01/25 08:36 Hx Sleep Apnea No 07/01/25 08:36 CPAP BIPAP Do you snore loudly (louder No 07/01/25 08:36 than talking or can be heard Do you often feel tired/ No 07/01/25 08:36 fatigued/ sleepy during daytime? Has anyone observed you stop No 07/01/25 08:36 breathing during sleep? STOP Results Negative 07/01/25 08:36 QUESTION #5 FULL TEXT : Do you snore loudly (louder than talking or can be heard through closed doors)? 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 Specify any problems Hx of Preganancy in last 3 No 07/01/25 08:36 Months Nurse Filling Out Transfusion [facility] 07/01/25 08:36 & Questions: Date: 07/01/25 07/01/25 08:36 Time: 08:43 07/01/25 08:36 Patient unable to answer at this time (ie. confused, unrespo /Reproduction History /Reproductive History - basket maker: /Reproductive Hx- basket maker Hx Now No 07/01/25 08:36 Gestational Age (in weeks): EDC: Hx Hx Para Hx Section SAB No 07/01/25 08:36 Active Medications Active Medications: Current Medications Generic Name Dose Route Start Last Admin Trade Name Freq PRN Reason Stop Dose Admin Cefazolin Sodium 2 gm/ Sodium 110 mls @ 200 mls/hr 07/07/25 11:00 Chloride IV 07/07/25 11:32 INTRAOP ONE Lactated Ringer's 1,000 mls @ 15 mls/hr 07/07/25 09:45 IV .Q48H NICOLE PFSH Medical History Cancer Wears contact lenses Wears glasses Depression Alcohol use Easy bruising Non-smoker Encounter for education 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 Home Medications ?Medication ?Instructions ?Recorded ?Last Taken ?Type bupropion HCl 150 mg 24 hr tablet, 150 mg PO QDAY 06/16/25 Unknown History extended release pembrolizumab 25 mg/mL intravenous See Rx Instructions .Route 06/28/25 Unknown Rx solution .COMPLEX #8 mL dexamethasone 4 mg tablet 8 mg (2 x 4 mg) PO .COMPLEX #32 06/30/25 Unknown Rx tabs lidocaine-prilocaine 2.5 %-2.5 % 1 applic topical ONCE PRN port 06/30/25 Unknown Rx topical cream access 30 days #30 grams ondansetron 8 mg disintegrating 8 mg PO Q8H PRN nausea and 06/30/25 Unknown Rx tablet vomiting #30 tabs prochlorperazine maleate 10 mg 10 mg PO Q6H PRN nausea and 06/30/25 Unknown Rx tablet vomiting #30 tabs Allergy/AdvReac Type Severity Reaction Status Date / Time No Known Allergies Allergy Verified 07/07/25 09:42 Family History Mother Breast cancer Cancer thyroid Bleeding disorder Father Hypertension Grandfather Colon cancer Hypertension Myocardial infarction Grandmother Breast cancer Cancer ovarian Aunt Breast cancer Ovarian cancer Sister Bleeding disorder Uncle Colon cancer Surgical History Status post tonsillectomy and adenoidectomy Social History Smoking Status: Never smoker alcohol intake: current alcohol intake frequency: holidays/special occasions only details: social substance use type: does not use caffeine: Yes what type of physical activity do you participate in: none seatbelt use: always do you feel safe at home: Yes additional 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
[2025-07-07 09:50] LABS: Internal QC Validated? YES +Cl - CLEAR BKGD; Pregnancy, Urine Negative Negative; Record Kit Lot#,Urine Preg 0000980607
[2025-07-07] MEDS: Lactated Ringers 1,000 ML 15 ML IV (09:55)
--- NOTE | 2025-07-07 10:18 | HP.PCM_ITS ---
History and Physical
--- NOTE | 2025-07-07 10:18 | PCM.HP.BLA ---
History and Physical Date of Admission: 07/07/25 Date of Service: 06/22/25 MR#: [id number] Acct: [id number] Name: KAELYN MOSQUERA Rep #: [id number] : 1985 Provider: Dr. 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 Surgical History Status post tonsillectomy and adenoidectomy Family History Mother Breast cancer Cancer thyroid Bleeding disorder Father Hypertension Grandfather Colon cancer Hypertension Myocardial infarction Grandmother Breast cancer Cancer ovarian Aunt Breast cancer Sister Bleeding disorder Social History Smoking Status: Never smoker alcohol intake: current details: social substance use type: does not use caffeine: Yes what type of physical activity do you participate in: none seatbelt use: always do you feel safe at home: Yes 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 Patient pathology showed invasive ductal carcinoma, grade 3, ER/ME and HER2/bartolo negative at both areas. Patient is here to discuss possible treatment options as well as pathology. ROS General General: Yes weight change and fatigue; No appetite, colon cancer, breast cancer or weakness HEENT HEENT: No difficulty swallowing, eye injury, eye surgery, swollen glands or hoarseness Endo Endocrine: No thyroid disease, diabetes mellitus, thyroid cancer, Hair loss, heat intolerance or cold intolerance Skin Skin: No rash or changing moles Breast Breast: No left breast lump, right breast lump, nipple discharge, breast pain, abnormal mammogram, abnormal US or breast enlargement Musc Musculoskeletal: No back problems, arthritis, rheumatoid arthritis, gout or joint pain Cardio Cardiovascular: No murmur, pacemaker, heart disease, atrial fibrillation, high blood pressure, heart attack, heart stent, palpitations, shortness of breath with exertion or chest pain Psych Psychiatric: Yes depression; No anxiety or hearing voices Resp Respiratory: No shortness of breath, No sleep apnea, No cough, No COPD, No asthma, No emphysema and No wheezing Gastro Gastrointestinal: No abdominal pain, No nausea or vomiting, No diarrhea, No constipation, No blood in stool, No acid reflux, No hemorrhoids, No ulcers, No gallbladder problem and No black,tarry stools Brian Hematologic: No blood thinners, No blood disorders, No bleeding, No anemia and No blood clots Neuro Neurologic: No system reviewed and no additional complaints, except as documented, No as per HPI, No abnormal gait, No abnormal hearing, No abnormal movements, No abnormal speech, No behavioral changes, No burning sensations, No confusion, No convulsions, No disequilibrium, No dizziness, No localized weakness, No frequent falls, No headache(s), No lack of coordination, No loss of vision, No memory loss, No numbness, No other visual disturbances, No radicular pain, No restless legs, No sensory deficit, No syncope, No tingling, No tremor(s), No weakness and No other Exam Const General: cooperative, healthy appearing and no acute distress HENNE Head: normal to inspection Chest Other: Left breast: Biopsy sites healing well, the 1:00 area has again gotten larger in size that I do think part of the area was fluid-filled as we get more fluid out during the biopsy and local the). 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 Patient's MRI is scheduled. Patient has appointment with oncology this . Patient is planning for bilateral mastectomies with reconstruction due to BRCA1 positive when she is ready for surgery. I have discussed above with the patient- Port-a-Cath placement. Right possible left Patient has been counseled as to the risks/benefits of the procedure. I have explained the risks of the surgery, including but not limited to: infection, bleeding, injury to any blood vessels/nerves, injury to lungs (such as pneumothorax or hemothorax and need for chest tube), not having any access, nonfunctioning of port due to thrombosis, infection of port, etc. the patient understands and agrees to proceed. I have answered all the patient's questions to the patient?s satisfaction and the patient has no further questions. Hailey Ledbetter M.D. Pager: [phone] [facility] [address] [place] [address], [address] [place] [address] Office: [phone] Coding Level of Care Code Off vis,est,level 3 Diagnoses Triple negative breast cancer C50.919; Z17.421 Family history of breast cancer in first degree relative Z80.3 BRCA gene mutation positive Z15.01; Z15.09 06/22/25 1310 <Electronically signed by Hailey Ledbetter MD> Date Hailey Ledbetter MD Cosigner Signature: Date
--- NOTE | 2025-07-07 11:00 | LYMN_PTH ---
PATIENT: KAELYN MOSQUERA [place] [facility] [place][id number] AGE/SX: 39/F ROOM: RE07/07/[address]: Dr. Hailey Ledbetter MD : 1985 BED: DIS: 07/07/2025 SPEC #: [id number] RECD: 07/07/25 13:09 STATUS: SHAVONNE REQ #: [id number] KEITH: 07/07/25 11:[address]: Hailey Ledbetter DEPT: SURGICAL PATHOLOGY RECD BY: William Beaulieu ENTERED: 07/07/25 15:58 SP TYPE: LYMPH NODE OTHR DR: Dr. Fortunato Berry, DO Tissues: A - Axillary lymph node, NOS Procedures: Immunohistochemical Stains Surgery Specimen Level IV HEADER OPERATION: Insertion, vascular port right, ultrasound guided PRE-OP DIAGNOSIS: Left ductal breast cancer, triple negative, port for chemotherapy TISSUE SUBMITTED: A- Left axillary lymph node biopsy MICROSCOPIC DIAGNOSIS A. Left axillary lymph node, ultrasound guided core biopsy: - Benign lymphoid tissue. MICROSCOPIC DESCRIPTION Slides are reviewed. GROSS DESCRIPTION A. Received in formalin labeled with the patient's name and date of . Designated as left axillary lymph node biopsy are multiple pale avila-yellow tissue core fragments, 1.2 x 1.0 x 0.1 cm in aggregate. Entirely submitted in 1 cassette. NM 07/07/2025 CPT:89965,44078 ADDENDUM ADDENDUM ADDENDUM ADDENDUM ADDENDUM ADDENDUM ADDENDUM ADDENDUM ADDENDUM ADDENDUM ADDENDUM ADDENDUM ADDENDUM 07/12/2025 15:37 ADDENDUM 07/12/2025 15:37 ADDENDUM 07/12/2025 15:37 ADDENDUM 07/12/2025 15:37 ADDENDUM 07/12/2025 15:37 This addendum is to report the IHC for pankeratin: A. IHC for pankeratin is negative, supporting the histologic impression. The diagnosis remains unchaged. All matched controls reacted appropriately. These tests were developed and their performance characteristics determined by [facility]. They may not have been cleared or approved by the U.S. Food and Drug Administration. The FDA has determined that such clearance or approval is not necessary. The above immunohistochemical markers and/or special?stains have been reviewed by the Pathologist.
--- NOTE | 2025-07-07 11:15 | SUR.PREOP ---
pt given update about surgery delay
[2025-07-07] MEDS: Midazolam 2 MG/2 ML Syringe IV (11:38)
[2025-07-07] MEDS: Lactated Ringers 1,000 ML 1000 ML IV (11:38)
[2025-07-07] MEDS: Cefazolin 1 GM/5 ML Vial 2 GM IV (11:40)
[2025-07-07] MEDS: Lidocaine 1% (5 ml sdv) 5 ML Vial IV (11:44)
[2025-07-07] MEDS: fentaNYL 100 MCG/2 ML Ampul IV (11:45)
[2025-07-07] MEDS: Lidocaine 1% /Epi 1:100 (20ml) 20 ML Vial (12:32)
--- NOTE | 2025-07-07 12:52 | OP.PCM_ITS ---
Operative Report (Standard)
--- NOTE | 2025-07-07 12:52 | PCM.OPRPT ---
Operative Report (Standard) Operative Information Date of Procedure: 07/07/25 Pre-Operative Diagnosis: Z45.2, left breast cancer, left axillary lymphadenopathy, abnormal PET scan?right axillary lymph nodes Post-Operative Diagnosis: Same Surgery/Procedure Performed: 1. Placement of right IJ Port-A-Cath, 2. Use of ultrasound, 3. Use of fluoroscopy 4. 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 Type of Anesthesia: Local MAC RN Documented Start/Stop Times: Operation Date: 07/07/25 11:00 Case Time Into Pre-Op 07/07/25 09:31 Out of Pre-Op 07/07/25 11:35 Anesthesia Start 07/07/25 11:38 Into Room 07/07/25 11:38 Procedure Start 07/07/25 11:51 Procedure End 07/07/25 12:54 Anesthesia End 07/07/25 12:57 Out of Room 07/07/25 12:57 Into Recovery 07/07/25 12:59 Out of Recovery 07/07/25 13:31 Into Phase II Recovery 07/07/25 13:32 Out of Phase II 07/07/25 14:40 Procedure Start Time: 11:51 Procedure Stop Time: 12:54 Select all DRAINS/GRAFTS/IMPLANTS that apply: Implanted device Implanted device details: Bard PowerPort isp M.R.I. 6Fr Lot [id number]; BARD dual ultraribbon clip in left axilla Special Medications: Ancef 2 g IV x 1 Estimated Blood Loss: < 10 cc Specimen collected: Yes Description of specimen(s) removed: Left axillary lymph node Description of surgery: After informed consent was given, the patient was brought to the operating room and placed in the supine position. Appropriate time out protocol was followed. Patient was then given IV conscious sedation for anesthesia. The patient's right upper chest and neck were then prepped with a surgical skin preparation and sterile surgical drapes were placed. After proper landmarks were ascertained, the skin at the upper right chest area was then infiltrated with 1:1 mixture of 1% lidocaine with epinephrine and 0.5% marcaine. A needle trocar was then inserted into the right internal jugular vein with ultrasound guidance-multiple vessels were viewed with u/s and the right IJ was chosen-- and there was good aspiration of venous blood. A wire was then threaded into the needle trocar and this was visualized under fluoroscopy to ensure that the wire was in the superior vena cava. Once this was done, then the needle trocar was removed. A small skin gaston was made with an 11 blade knife at the wire entrance site. The dilator with the introducer sheath attached was then placed over the wire into the right internal jugular vein via the Seldinger technique and this was visualized under fluoroscopy. The dilator and sheath were in proper position as visualized by fluoroscopy. A subcutaneous pocket was then created caudad to the catheter insertion site. A transverse skin incision was made after the skin and subcutaneous tissues were infiltrated with local anesthetic. Blunt dissection was then used to create a space large enough for placement of the subcutaneous port. The catheter was then tunneled into the subcutaneous pocket. The wire and dilator were then removed. The catheter was then threaded into the introducer sheath and was positioned with its tip at the junction of the superior vena cava and the right atrium as visualized under fluoroscopy. The excess catheter was transected. The catheter was then attached to the subcutaneous port using manufacturers guidelines. The catheter was flushed with a heparin saline mixture prior to placement. Hemostasis was carefully controlled with electrocautery. The port was sutured to the subcutaneous fascia using 2-0 Vicryl suture at two sites. The port was then placed in the subcutaneous pocket. The incision were reapproximated with interrupted subdermal 3-0 vicryl sutures. The skin was reapproximated with 3-0 nylon suture in a interrupted fashion. Steristrips were used for reinforcement of the skin closure at IJ insertion site and a sterile opsite dressings were applied. The patient tolerated the procedure well. Procedure: Left axillary lymph node ultrasound-guided core biopsy Description of procedure: The left axilla was marked. A timeout was completed verifying correct patient, procedure, site, specially, prior to beginning procedure. The left axilla was prepped and draped in usual sterile fashion and using local anesthesia was obtained with 1% lidocaine with epi. The lesion was located with the ultrasound. Small incision was made with 11 blade to introduced the BARD MaxCore through the skin. Under ultrasound guidance multiple core samples were obtained using then 14-gauge BARD MaxCore and sent in formalin for pathology. The Bard dual ultra-ribbon clip was then deployed into the biopsy cavity under ultrasound guidance and a picture was taken. Upon completion procedure hemostasis was obtained and a Steri-Strip and OpSite were placed. ======== Did look with the ultrasound on the right axilla however the nodes did not look atypical and they seem like they are more inferior than the ones enhanced on the PET scan. I did not feel like I had a good view of the lymph nodes that possibly enhanced on the previous PET scan. Will plan to do a biopsy in radiology with ultrasound. The patient tolerated the procedure well and was taken to PACU in stable condition. Surgical Findings: See operative report Complications Complications: No
--- NOTE | 2025-07-07 12:55 | DCINST_ITS ---
Discharge Instructions
--- NOTE | 2025-07-07 12:55 | EX.PCM.DISCH ---
Discharge Instructions Procedure Port-A-Cath Diet Discharge Diet: Light diet - advance as tolerated Activity May shower in (days): 5 (Keep port site clean and dry x5 days. Neck incision okay to get wet after 1 day. Okay to lower shower and upper sponge bath. OR okay to taper off port site with a Ziploc bag to shower) Lifting Restrictions: No lifting > 15 pounds for 3 days with the arm on the side of the port Dressing / Incision Call your doctor if your incision/area has: Continuous Slow Oozing, Sudden Increased Bleeding, Increased Pain/ Swelling, Increased Redness, Foul Smelling Discharge and Swelling at the incision site Call your doctor if you observe: Fever of 101 or Higher Change Dressing in: 2 days (2-3 days- port site; ok to remove neck opsite in 1 day) Follow Up Care Please Follow Up With: Hailey Ledbetter MD When: In 10 days for permanent suture removal?call office for appointment Test Results: Test results from this visit will be discussed in further detail at your follow-up appointment, if applicable. Discharge Plan Admission Attending Provider: Hailey Ledbetter Primary Care Provider: Fortunato Berry Instructions Print Language: Yakut Discharge Orders/Prescriptions Prescriptions: New oxycodone 5 mg capsule 5 mg PO Q6H PRN (Reason: pain) 3 Days Qty: 5 0RF Continued bupropion HCl 150 mg tablet extended release 24 hr 150 mg PO QDAY lidocaine-prilocaine 2.5-2.5 % cream 1 applic topical ONCE PRN (Reason: port access) 30 Days Qty: 30 2RF dexamethasone 4 mg tablet 8 mg PO .COMPLEX Qty: 32 0RF Rx Instructions: 8 mg orally ONLY days 2 & 3 of chemotherapy cycle prochlorperazine maleate 10 mg tablet 10 mg PO Q6H PRN (Reason: nausea and vomiting) Qty: 30 2RF ondansetron 8 mg tablet,disintegrating 8 mg PO Q8H PRN (Reason: nausea and vomiting) Qty: 30 2RF pembrolizumab 25 mg/mL solution See Rx Instructions .ROUTE .COMPLEX Qty: 8 7RF Rx Instructions: 200mg IV q 21 days; Referrals / Follow Up: Fortunato Berry DO [Primary Care Provider, Family Practice] Disposition Disposition (needs filled in before D/C Order can be placed): Home, Self Care
--- NOTE | 2025-07-07 13:04 | POSTOP.ANE_ITS ---
Anesthesia: Postop Eval I
--- NOTE | 2025-07-07 13:04 | PCM.POST.ANE ---
Anesthesia: Postop Eval I Current Vital Signs Temperature: 97.0 F Pulse Rate: 94 Blood Pressure: 142/96 Respiratory Rate: 20 Pulse Ox: 99 Oxygen Delivery Method: Room Air Assessment Airway patent: Yes Spontaneous unlabored respirations: Yes Mental status: Awake and Calm nausea: No Vomiting: No Anesthesia Complication: No Fluid Hydration Crystalloid volume administer (ml): 300 Total IV fluid infused: 300 Progress Note Anesthesia document: Postop Eval 1 completed: Yes
--- NOTE | 2025-07-07 13:15 | RAD_ITS ---
PROCEDURE: RAD/Chest 1 View (Portable)
--- NOTE | 2025-07-07 14:08 | POSTOPAN2_ITS ---
Anesthesia Postop Eval I Sum
--- NOTE | 2025-07-07 14:08 | PCM.POSTANE2 ---
Anesthesia Postop Eval I Sum Postop Eval Completion status Anesthesia document: Postop Eval 1 completed: Yes Anesthesia Postop Eval I Summary Anesthesia Postop Eval I Summary: Anesthesia Postop Eval I: Assessment Summary Airway patent Yes 07/07/25 13:05 [facility] [email or web address] Spontaneous unlabored Yes 07/07/25 13:05 [facility] [email or web address] respirations Mental status Awake,Calm 07/07/25 13:05 [facility] [email or web address].PKEL nausea No 07/07/25 13:05 [facility] [email or web address].PKEL Vomiting No 07/07/25 13:05 [facility] [email or web address].PKEL Anesthesia Postop Eval I: Fluid Summary Crystalloid volume administer 300 07/07/25 13:05 [facility] [email or web address].PKEL (ml) Colloids volume administered ( ml) Blood Product volume administered (ml) Total IV fluid infused 300 07/07/25 13:05 [facility] [email or web address] Anesthesia Postop Eval I: Summary Notes Anesthesia Complication No 07/07/25 13:05 [facility] [email or web address] Anesthesia Complication Comment: Post-operative progress note Anesthesia: Postop Eval II Evaluation Mental status: Awake Pain Level: 0 nausea: No Vomiting: No
[2025-07-07] MEDS: 0.9% Saline Lock 10 ML Syringe IV (14:17)
--- NOTE | 2025-07-07 14:36 | SUR.PHASEII ---
Patient right port deacessed, NS 0.9% Flush and heparin lock. Patient tolerated. Op-site placed at right neck incision and right chest incision. Patient tolerated well.
--- NOTE | 2025-07-08 13:47 | LYMN_PTH ---
PATIENT: KAELYN MOSQUERA LOC: [facility] [place] U#:[id number] AGE/SX: 39/F ROOM: RE07/07/[address]: Dr. Hailey Ledbetter MD : [id number] BED: DIS: 07/07/2025 SPEC #: [id number] RECD: 07/08/25 14:13 STATUS: SHAVONNE REQ #: [id number] KEITH: 07/08/25 13:[address]: Hailey Ledbetter DEPT: SURGICAL PATHOLOGY RECD BY: William Beaulieu ENTERED: 07/08/25 14:45 SP TYPE: LYMPH NODE OTHR DR: Dr. Fortunato Berry, DO Tissues: A - Axillary lymph node, NOS Procedures: Immunohistochemical Stains Surgery Specimen Level IV HEADER OPERATION: Ultrasound guided right axilla core biopsy PRE-OP DIAGNOSIS: Right axillary lymph node TISSUE SUBMITTED: A- Right axilla lymph node MICROSCOPIC DIAGNOSIS A. Right axilla, lymph node, ultrasound-guided core biopsy: - Benign lymphoid tissue. - No evidence of metastasis is seen in these sections. - IHC for pankeratin is negative (A1, A2), supporting the histologic impression. MICROSCOPIC DESCRIPTION Slides are reviewed. All matched controls reacted appropriately. These tests were developed and their performance characteristics determined by [facility]. They may not have been cleared or approved by the U.S. Food and Drug Administration. The FDA has determined that such clearance or approval is not necessary. The above immunohistochemical markers and/or special?stains have been reviewed by the Pathologist. GROSS DESCRIPTION A. Received in formalin labeled with the patient's name and date of . Designated as RT axilla node are multiple avila-white tissue core fragments, 0.2 cm to 0.8 cm in length by 0.1-0.2 cm in diameter. Additional core biopsies are received fresh and subsequently placed in RPMI for potential future ancillary studies. The entirety of the formalin fixed tissue cores are submitted in 1 cassette. AK 07/08/2025 A. The 0.6 x 0.2 cm avila tissue core placed in RPMI and subsequently placed in cassette A2, following histopathologic review. AK 5CPT:[id number]
== END 2025-07-07 14:41 | disposition home or self-care (01) ==
LOC: SDC 09:26 → AC 09:28
PROVIDERS: Anesthesiology; PCP Family Medicine; Referring Provider Surgery; Visit Provider Surgery
PROC: (CPT 36561; principal; 2025-07-07 10:45)
PROC: (CPT 38500; 2025-07-07 10:45)
DX: Z45.2 Encounter for adjustment and management of vascular access device (principal); C50.912 Malignant neoplasm of unspecified site of left female breast; Z17.32 Human epidermal growth factor receptor 2 negative status; Z80.3 Family history of malignant neoplasm of breast; Z17.1 Estrogen receptor negative status [ER-]; Z17.22 Progesterone receptor negative status; Z15.01 Genetic susceptibility to malignant neoplasm of breast
CPT/HCPCS: 36561; 38505; 00532; 71045; 77001; 81025; 88305; 88342; A4216

== ENCOUNTER → 2025-07-08 | Outpatient (CLI) | payer OTHER, SELFPAY ==
--- NOTE | 2025-07-08 13:00 | US_ITS ---
PROCEDURE: US NEEDLE BIOPSY/SOFT TISSUE 07/08/2025 REASON FOR EXAM: R59.0 - LOCALIZED ENLARGED LYMPH NODES TECHNIQUE: Procedure Code: [id number] Modality: US Procedure: US NEEDLE BIOPSY/SOFT TISSUE. Under direct sonographic guidance, the surgeon performed core biopsies of the right axillary lymph node. COMPARISON: Prior sonogram dated July 05, 2025. FINDINGS: Under direct sonographic guidance, the surgeon performed to core biopsies of the 2 cm x 1.2 cm 1.1 cm lymph node in the right axilla. US/US Needle Biopsy/Soft Tissue IMPRESSION: Successful ultrasound-guided core biopsy of the right axillary lymph node. The procedure was performed by the surgeon. Reading Location: [facility]
--- NOTE | 2025-07-09 07:36 | OP.PCM_ITS ---
Operative Report (Standard) Operative Information Date of Procedure: 07/08/25 Pre-Operative Diagnosis: abnormal PET scan-right & left axillary LN enhancement Post-Operative Diagnosis: same Surgery/Procedure Performed: US guided biopsy of right axillary LN dean of admissions: No Type of Anesthesia: Local Procedure Start Time: 13:30 Procedure Stop Time: 13:45 Select all DRAINS/GRAFTS/IMPLANTS that apply: Implanted device Implanted device details: BARD dual ultra ribbon clip - right axillary LN Estimated Blood Loss: <10 cc Specimen collected: Yes Description of specimen(s) removed: right axillary LN Description of surgery: Procedure: Right axillary lymph node ultrasound-guided core biopsy Indications: 39 year-old female with abnormal PET scan showing enhancement of right axillary lymph nodes–patient did have flu shot 2 days prior to having the PET scan done, patient does have known left breast cancer. Risk benefits were discussed the patient and she elected to proceed with ultrasound guided core biopsy with clip placement. Description of procedure: Patient was brought into the ultrasound room in the right axilla was marked. A timeout was completed verifying correct patient, procedure, site, specially, prior to beginning procedure. The right axilla was prepped and draped in usual sterile fashion and using local anesthesia was obtained with 1% lidocaine with epi. One of the lymph nodes were located with the ultrasound with nodes to appear benign and did target 1 that was more superior than inferior to as those 2 did not enhance on PET scan. Small incision was made with 11 blade to introduced the BARD MaxCore through the skin. Under ultrasound guidance multiple core samples were obtained using then 14- gauge BARD MaxCore and sent in formalin for pathology. The Bard dual ultra- ribbon clip was then deployed into the biopsy cavity under ultrasound guidance and a picture was taken. Upon completion procedure hemostasis was obtained and a Steri-Strip and OpSite were placed. Patient was then taken to the mammography suite for clip verification. The clip was verified. The patient tolerated the procedure well and was discharged from the breast imaging department good condition. Surgical Findings: see op note Complications Complications: No
== END | disposition home or self-care (01) ==
PROVIDERS: PCP Family Medicine; Referring Provider Surgery; Visit Provider Surgery
DX: C50.912 Malignant neoplasm of unspecified site of left female breast (principal)
CPT/HCPCS: 38500; 76942

== ENCOUNTER → 2025-07-16 | Outpatient (CLI) | payer OTHER, SELFPAY ==
--- NOTE | 2025-07-16 14:57 | ECHODONC_ITS ---
Reason For Study Reason For Study: Breast Cancer Procedure This was a 2D Doppler, Color Flow transthoracic echocardiogram. Myocardial strain analysis was performed in this exam to aid in the assessment of cardiac function. Exam performed in department. Left Ventricle Normal LV size. The global longitudinal strain = -22.7 % (normal). The left ventricular ejection fraction is 65 %. No regional wall motion abnormalities noted. Right Ventricle Normal RV size. Normal systolic function. Atria Normal left atrium. Normal right atrium. Mitral Valve Normal mitral valve. Tricuspid Valve Normal tricuspid valve. Aortic Valve Trisinus/trileaflet aortic valve. Pulmonic Valve Normal pulmonic valve. Great Vessels Normal aortic root. The pulmonary artery is normal size. Inferior vena cava collapse with respiration. Pericardium/Pleural No pericardial effusion. MMode/2D Measurements & Calculations LVIDd: 4.1 cm IVSd: 0.92 cm Ao root diam: 2.6 cm LVIDs: 2.4 cm LVPWd: 0.82 cm RVDd: 2.9 cm FS: 41.2 % LAV(MOD-bp): 29.5 ml LVAd ap4: 23.2 cm2 SV(MOD-sp4): 40.6 ml LAV(MOD-bp) Indexed: 16.8 ml/m2 LVLd ap4: 6.8 cm SI(MOD-sp4): 23.1 ml/m2 LAV(MOD-sp2): 26.6 ml EDV(MOD-sp4): 63.5 ml LAV(MOD-sp4): 28.6 ml EDV(sp4-el): 67.1 ml LVAs ap4: 12.3 cm2 LVLs ap4: 5.6 cm ESV(MOD-sp4): 22.9 ml ESV(sp4-el): 23.0 ml EF(MOD-sp4): 64.0 % EF(sp4-el): 65.7 % SV(sp4-el): 44.1 ml LA A4 area: 12.4 cm2 LA dimension(2D): 3.0 cm RA A4 area: 9.1 cm2 TAPSE: 2.1 cm Time Measurements MV dec time: 0.25 sec Doppler Measurements & Calculations MV E max ahsan: 102.1 cm/sec Lat Peak E' Ahsan: 19.6 cm/sec Med Peak E' Ahsan: 13.8 cm/sec MV A max ahsan: 62.6 cm/sec E/E' lat: 5.2 E/E' med: 7.4 MV E/A: 1.6 MV V2 max: 106.8 cm/sec MV P1/2t max ahsan: 107.7 cm/sec Ao V2 max: 141.3 cm/sec MV max P.6 mmHg MV P1/2t: 85.1 msec Ao max P.0 mmHg MV V2 mean: 59.5 cm/sec Ao V2 mean: 100.1 cm/sec MV mean P.7 mmHg MV dec slope: 371.0 cm/sec2 Ao mean P.6 mmHg MV V2 VTI: 30.6 cm MVA(P1/2t): 2.6 cm2 Ao V2 VTI: 31.6 cm AV (velocity ratio): 0.82 LV V1 max: 122.8 cm/sec PA V2 max: 153.9 cm/sec LV V1 max P.0 mmHg LV V1 mean P.4 mmHg LV V1 mean: 87.6 cm/sec LV V1 VTI: 26.0 cm ECHO/ONC Echo Complete Interpretation Summary Normal LV size. The global longitudinal strain = -22.7 % (normal). The left ventricular ejection fraction is 65 %. Structurally normal valves. Ordering Physician: Ashlyn Craven Referring Physician: Ashlyn Craven Performed By: Adriel Vanegas RCS
== END | disposition home or self-care (01) ==
LOC: CVS 14:53
PROVIDERS: PCP Family Medicine; Referring Provider Internal Medicine Hematology & Oncology; Visit Provider Internal Medicine Hematology & Oncology
DX: C50.919 Malignant neoplasm of unspecified site of unspecified female breast (principal)
CPT/HCPCS: 93306; 93356

== ENCOUNTER 2025-08-30 14:51 | Emergency (ER) | payer OTHER, SELFPAY ==
[2025-08-30 14:52] VITALS: BP 148/98; PULSE 145; RESP 20; TEMP 36.9; O2SAT 100
[2025-08-30 15:36] VITALS: BP 135/86; PULSE 112; RESP 20; TEMP 36.8; O2SAT 97; BMI 29.8
--- NOTE | 2025-08-30 15:52 | EX.ED.DYSGE1 ---
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 Home Medications ?Medication ?Instructions ?Recorded ?Last Taken ?Type bupropion HCl 150 mg 24 hr tablet, 150 mg PO QDAY 06/16/25 08/30/25 History extended release pembrolizumab 25 mg/mL intravenous See Rx Instructions .Route 06/28/25 08/25/25 Rx solution .COMPLEX #8 mL dexamethasone 4 mg tablet 8 mg (2 x 4 mg) PO .COMPLEX #32 06/30/25 08/27/25 Rx tabs lidocaine-prilocaine 2.5 %-2.5 % 1 applic topical ONCE PRN port 06/30/25 08/30/25 Rx topical cream access 30 days #30 grams ondansetron 8 mg disintegrating 8 mg PO Q8H PRN nausea and 06/30/25 Unknown Rx tablet vomiting #30 tabs prochlorperazine maleate 10 mg 10 mg PO Q6H PRN nausea and 06/30/25 Unknown Rx tablet vomiting #30 tabs multivitamin (Daily Multi-Vitamin 1 tab PO DAILY 08/30/25 08/30/25 History tablet) sennosides 8.6 mg tablet (Laxative 8.6 mg PO DAILY 08/30/25 08/30/25 History (sennosides)) Allergy/AdvReac Type Severity Reaction Status Date / Time No Known Allergies Allergy Verified 08/30/25 14:52 Family History Mother Breast cancer Cancer thyroid Bleeding disorder Father Hypertension Grandfather Colon cancer Hypertension Myocardial infarction Grandmother Breast cancer Cancer ovarian Aunt Breast cancer Ovarian cancer Sister Bleeding disorder Uncle Colon cancer Surgical History Status post tonsillectomy and adenoidectomy Social History Smoking Status: Never smoker alcohol intake: current alcohol intake frequency: holidays/special occasions only details: social substance use type: does not use caffeine: Yes what type of physical activity do you participate in: none seatbelt use: always do you feel safe at home: Yes additional social history: fiance- jerry -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 Patient works for [employer] EXAM Physical Exam Const Vital Signs: 08/30/25 14:52 08/30/25 15:36 08/30/25 15:36 Temperature 98.4 F 98.3 F Temperature Source Oral Oral Pulse Rate 145 H 112 H Respiratory Rate 20 H 20 H Respiratory Effort Short of Breath Respiratory Pattern Normal Blood Pressure 148/98 H 135/86 H Blood Pressure Mean 114 102 Pulse Ox 100 97 Oxygen Delivery Method Room Air Room Air 08/30/25 17:00 08/30/25 18:41 Temperature 98.6 F 97.8 F Temperature Source Oral Oral Pulse Rate 103 H 94 Respiratory Rate 16 16 Respiratory Effort Respiratory Pattern Blood Pressure 122/77 H 147/79 H Blood Pressure Mean 92 101 Pulse Ox 100 100 Oxygen Delivery Method Room Air Room Air MDM MDM MDM Narrative Medical decision making narrative: HISTORY OF PRESENT ILLNESS: Chief complaint: Fever 39-year-old female history of breast cancer on chemo presents with fever. Notes fever 101. She think she may have a cold. Denies sore throat, ear pain. Denies vomiting. Has abdominal pain. Denies chest pain. Denies new rash. Denies urinary complaints. Denies diarrhea. REVIEW OF SYSTEMS: Pertinent positives: Fever, fatigue Pertinent negatives: PHYSICAL EXAM: Nursing triage notes reviewed, Vital signs reviewed Constitutional: please see mdm HENT: MMM Eyes: Pupils equal round and reactive to light, Extraocular muscles intact Neck: No stridor, no JVD, full neck ROM Lungs: Clear to auscultation, No wheezing or rales. No increased work of breathing, no conversational dyspnea, no accessory muscle use, no nasal flaring. No respiratory distress noted Heart: Regular rate and rhythm, No murmurs, No rubs and No gallops, 2+ distal pulses (radial, femoral, posterior tibial) in all extremities Abdomen: Soft, there is no tenderness, rigidity, rebound or guarding, no obvious peritoneal signs, no palpable pulsatile abdominal masses, no auscultated abdominal bruit : No CVAT Extremities: No edema Neuro: No new focal neurological deficits, cranial nerves II through XII intact, 5/5 strength in all present extremities. Intact sensation to light touch in all present extremities, 2+ reflexes bilateral patella tendons. Skin: No rash or lesions noted MEDICAL DECISION MAKING: Chief Complaint: please see HPI External records reviewed: Reviewed prior oncology note. Last chemotherapy 08/25/2025 Factors affecting care: Breast cancer Social determinants of health: none History obtained from others: none Consults: none [facility] Narrative: Patient was initially tachycardic with heart rate 145, tachypneic respirate of 20, initially afebrile. Exam without focus of infection. No documented fever on multiple occasions in the emergency department. I considered the following differential diagnosis: COVID, RSV, flu, pneumonia, UTI, amongst others I obtained a broad lab and imaging work to further determine if the patient was suffering from a life-threatening etiology. Sepsis order set used Initially assisted patient with IV fluids. ALL IMAGES (IF OBTAINED) HAVE BEEN PERSONALLY REVIEWED AND INTERPRETED BY MYSELF. EKG with sinus tachycardia rate of 106, normal axis, normal intervals, no STEMI CBC with no leukocytosis, noted mild baseline anemia but no thrombocytopenia noted CMP without evidence of acute kidney injury, significant electrolyte abnormality, anion gap to suggest end organ hypo-perfusion, no evidence of metabolic acidosis with a normal bicarbonate, no evidence of hepatobiliary obstructive pathology. Urinalysis pending I suspect the patient's presentation is related to adverse effects related to chemotherapy. No clear source of infection. No documented fever here. Do not suspect to suffer from neutropenic fever. On reevaluation patient's heart rate improved to 94. She remained afebrile. Her fever was assessed 3 times during her ED stay. She stated she did not feel well however wanted to go home. I asked if she wanted wait for urinalysis did know she like to go home as she is not concerned that she has a significant illness. Patient was discharged at this time with close follow-up with her oncologist. Strict return precautions were discussed. The patient and/or family, caregivers express understanding. The patient and/or family, caregivers agrees with the plan. Shared decision making: I will have a discussion with the patient and or visitors regarding risk/benefits of further testing or admission. They will be made aware of of the risk/benefits inherent in this decision they will be given the opportunity to voice understanding. Total critical care time today provided was at least 0 minutes. This excludes separately billable procedures. Critical care time (if documented) is secondary to the patient having high probability of clinically significant/life threatening deterioration in the patient's condition which required my urgent intervention. Impression: 1. Dehydration 2. History of breast cancer Dispo: Discharge home This note was generated with [employer] dictation software. It may contain incorrect words, spelling, and punctuation that were not noted in review of the chart prior to signing. Lab Data Labs: Laboratory Results - last 24 hr 08/30/25 16:20 WBC 3.6 L RBC 3.26 L Hgb 10.1 L Hct 27.9 L MCV 85.6 MCH 31.0 MCHC 36.2 H RDW Std Deviation 39.3 RDW Coeff of Deborah 13.1 Plt Count 241 MPV 9.4 Immature Gran % (Auto) 0.600 Neut % (Auto) 44.4 L Lymph % (Auto) 51.4 H [place] % (Auto) 3.0 Eos % (Auto) 0.3 Baso % (Auto) 0.3 Absolute Neuts (auto) 1.6 L Absolute Lymphs (auto) 1.86 Nucleated RBC % 0 Sodium 137 Potassium 3.5 Chloride 98 Carbon Dioxide 27.3 Anion Gap 12 BUN 14 Creatinine 0.83 Estim Creat Clear Calc 84.01 Est GFR (MDRD) Non-Af 90 BUN/Creatinine Ratio 17.3 Glucose 108 H Lactic Acid 1.1 Calcium 9.2 Total Bilirubin 0.19 AST 19 ALT 24 Alkaline Phosphatase 60 Total Protein 6.3 Albumin 4.0 Globulin 2.3 Albumin/Globulin Ratio 1.7 Radiography Diagnostic Testing: Clinical Impression(s) from Imaging Studies Chest X-Ray 08/30/25 16:50 IMPRESSION: No acute pulmonary disease. Reading Location: [facility] Discharge Plan Triage Chief Complaint: Fever ED Provider: Gabriel Donohue Dx/Rx/DC Orders Clinical Impression: Chemotherapy adverse reaction Instructions: Breast Cancer: Chemotherapy Prescriptions: No Action bupropion HCl 150 mg tablet extended release 24 hr 150 mg PO QDAY lidocaine-prilocaine 2.5-2.5 % cream 1 applic topical ONCE PRN (Reason: port access) 30 Days Qty: 30 2RF dexamethasone 4 mg tablet 8 mg PO .COMPLEX Qty: 32 0RF Rx Instructions: 8 mg orally ONLY days 2 & 3 of chemotherapy cycle prochlorperazine maleate 10 mg tablet 10 mg PO Q6H PRN (Reason: nausea and vomiting) Qty: 30 2RF ondansetron 8 mg tablet,disintegrating 8 mg PO Q8H PRN (Reason: nausea and vomiting) Qty: 30 2RF multivitamin [Daily Multi-Vitamin] Tablet 1 tab PO DAILY sennosides [Laxative (sennosides)] 8.6 mg tablet 8.6 mg PO DAILY pembrolizumab 25 mg/mL solution See Rx Instructions .ROUTE .COMPLEX Qty: 8 7RF Rx Instructions: 200mg IV q 21 days; Primary Care Provider: Fortunato Berry Referrals: Ashlyn Craven MD [Med Staff - Active Staff, Oncology] Fortunato Berry DO [Primary Care Provider, Family Practice] Activity Restrictions/Additional Instructions: Thank you for trusting us with your care today! Please take Tylenol (2 pills, 650 mg), ibuprofen (2 pills, 400 mg) every 6 hours as needed for pain and fever control. Please return to the emergency department if your symptoms change or worsen. Please follow with your primary care physician for further outpatient evaluation and management. Print Language: Colombian Disposition Disposition: Home, Self Care
--- NOTE | 2025-08-30 16:11 | EKG12_ITS ---
Test Reason : Blood Pressure : */* mmHG Vent. Rate : 106 BPM Atrial Rate : 106 BPM P-R Int : 126 ms QRS Dur : 72 ms QT Int : 322 ms P-R-T Axes : 81 70 53 degrees QTcB Int : 427 ms Sinus tachycardia Otherwise normal ECG Confirmed by Nayan Simmons ([id number]), photographic editor CORI MANCERA ([id number]) on 08/31/2025 10:55:26 AM Also confirmed by Nayan Simmons ([id number]), photographic editor CORI MANCERA ([id number]) on 09/01/2025 11:03:47 AM Referred By: Confirmed By: Nayan Simmons
[2025-08-30] MEDS: 0.9% Normal Saline (1000mL) 1,000 ML 999 ML IV (16:33)
--- NOTE | 2025-08-30 16:50 | RAD_ITS ---
PROCEDURE: CHEST 1 VIEW (PORTABLE) 08/30/2025 REASON FOR EXAM: FEVER TECHNIQUE: Frontal view of the chest. COMPARISON: 07/07/2025 FINDINGS: Devices: Right chest wall MediPort with catheter tip at the superior cavoatrial junction. Lungs/Pleura: Clear. No airspace consolidation or sizable pleural effusion. Heart/Mediastinum: Normal in size. Bones/Soft tissues: No significant abnormality. RAD/Chest 1 View (Portable) IMPRESSION: No acute pulmonary disease. Reading Location: [id number]
[2025-08-30 16:53] LABS: Hematocrit 27.9 % (37-47); Hemoglobin 10.1 g/dL (12.0-15.0); Immature Granulocytes Count 0.020 X10^3/uL (0.0-0.0); Mean Corp Hgb Conc 36.2 g/dL (32-36); Mean Corpuscular Volume 85.6 fL (81-99); Mean Platelet Vol. 9.4 fl (6.2-12.0); NRBC Flagged by Analyzer 0 % (0-5); Platelet Count 241 K/mm3 (150-450); RBC Distribution Width CV 13.1 % (11.6-14.6); RBC Distribution Width SD 39.3 fl (35.1-43.9); Red Blood Count 3.26 M/mm3 (4.2-5.4); White Blood Count 3.6 K/mm3 (4.4-11.0)
[2025-08-30 17:00] VITALS: BP 122/77; PULSE 103; RESP 16; TEMP 37; O2SAT 100
[2025-08-30 17:12] LABS: AST(SGOT) 19 U/L (<=31); Alanine Aminotransfer ALT/SGPT 24 U/L (<=34); Albumin, Serum 4.0 g/dL (3.5-5.0); Alkaline Phosphatase 60 U/L (35-104); Anion Gap 12 (7-18); BUN 14 mg/dL (4-19); BUN/Creat Ratio 17.3 RATIO (10-20); Calcium,Total 9.2 mg/dL (7.6-11.0); Carbon Dioxide 27.3 mmol/L (20.0-29.0); Chloride 98 mmol/L (96-106); Estimated Creatinine Clearance 84.01 ml/min (50-250); Globulin 2.3 g/dL (2.2-4.2); Glucose 108 mg/dL (70-99); Potassium 3.5 mmol/L (3.5-5.1)
[2025-08-30 18:00] LABS: Mucous, Urine 0 SEEN /hpf (<or=2+)
[2025-08-30 18:41] VITALS: BP 147/79; PULSE 94; RESP 16; TEMP 36.6; O2SAT 100
[2025-08-30 19:01] LABS: Color, Urine Straw (Yellow); Glucose, Dipstick Normal (Normal); Ketone-Dipstick Negative (Negative); Leukocyte Esterase-Dipstick 100 /ul (Negative); Nitrite-Dipstick Positive (Negative); Occult Blood-Urine 25 /ul (Negative); Protein-Dipstick 15 mg/dl (Negative); Specific Gravity, Urine 1.015 (1.002-1.030); Urine Bilirubin Dipstick Negative (Negative)
[2025-08-30 19:25] LABS: Red Blood Cells-Urine 0-5 SEEN /hpf (0-5); Squamous Epithelial Cells - UA > 100 SEEN /hpf (5-10)
== END 2025-08-30 19:11 | disposition home or self-care (01) ==
PROVIDERS: Emergency Provider Emergency Medicine; PCP Family Medicine; Visit Provider Emergency Medicine
DX: R50.9 Fever, unspecified (principal); C50.919 Malignant neoplasm of unspecified site of unspecified female breast; E86.0 Dehydration; T45.1X5A Adverse effect of antineoplastic and immunosuppressive drugs, initial encounter; R10.9 Unspecified abdominal pain; Z79.899 Other long term (current) drug therapy
CPT/HCPCS: 36591; 71045; 80053; 81001; 83605; 85025; 87040; 87077; 87086; 87088; 87186; 87631; 93005; 96361; 99285; A4216

== ENCOUNTER 2025-09-01 11:45 | Outpatient (RCR) | payer OTHER, SELFPAY | END 2025-09-08 23:59 | LOC: NS 11:45 | PROVIDERS: PCP Family Medicine; Visit Provider Internal Medicine Hematology & Oncology | DX: Z71.3 Dietary counseling and surveillance (principal); C50.919 Malignant neoplasm of unspecified site of unspecified female breast; Z17.421 Hormone receptor negative with human epidermal growth factor receptor 2 negative status | CPT/HCPCS: 97803 ==